=== PATIENT | male | born 1945 | race Caucasian/White ===

== ENCOUNTER 2021-08-03 17:07 | Inpatient (IN) ==
[2021-08-03] MEDS ORDERED: OLANZapine 10 MG VIAL IM SCH (17:15)
--- NOTE | 2021-08-03 17:19 | Emergency Department Note ---
Altered Mental Status HPI <Veronika Villegas PA-C - Last Filed: 08/03/21 19:47> General Chief Complaint: Altered Mental Status Stated Complaint: Altered loc Time Seen by Provider: 08/03/21 17:14 Mode of arrival: other Limitations: altered mental status History of Present Illness HPI Narrative: 76-year-old male returns from the OR after cystoscopy and placement of a King catheter with Dr. Braun. Briefly, he was sent over from [facility] ER as they were not able to place a King catheter for acute urinary retention. He presented to the [facility] ER this morning with altered mental status and recurrent falls with last normal yesterday morning. Work-up at [facility] includes a CBC, CMP, urinalysis, chest x-ray, head CT without contrast. Patient has a leukocytosis of 11,500 with a subtle left shift. Electrolytes and kidney function are normal. Chest x-ray is negative. Head CT without contrast is negative for acute intracranial process. Urinalysis is negative for leukocyte esterase, nitrates, blood, ketones, protein, WBCs and bacteria. Patient does have a necrotic left toe, and has been on several courses of antibiotics with most recent antibiotic cephalexin. He is being treated by his primary care for this and has an appointment with podiatry on Friday. Patient past medical history significant for BPH, T2DM, polymyalgia rheumatica, chronic opioid use. Daughter is at the bedside gives his history. She states that he has a history of urosepsis with "the exact same presentation." She states that once he was placed on antibiotics his cognition cleared. He does not drink alcohol. No known other substance use. No history of dementia or cognitive dysfunction. Related Data Previous Rx's Medication Instructions Recorded tramadol 50 mg tablet 100 mg PO Q6H #240 tab 04/23/21 terbinafine HCl 250 mg tablet 250 mg PO QDAY #30 tab 07/25/21 hydrocodone 10 mg-acetaminophen 1 tab PO Q6H PRN #120 tab 07/27/21 325 mg tablet cephalexin 500 mg capsule 500 mg PO TID 7 Days #21 cap 07/31/21 Allergies Allergy/AdvReac Type Severity Reaction Status Date / Time Amoxicillin AdvReac Intermediate unable to Verified 08/03/21 17:08 urinate Review of Systems <Veronika Villegas PA-C - Last Filed: 08/03/21 19:47> ROS ROS Narrative: Narrative: Limitations: ROS unobtainable due to patients medical condition PFS <Veronika Villegas PA-C - Last Filed: 08/03/21 19:47> Narrative Patient History Narrative: Narrative: Medical/Surgical/Family History All Active Problems (Updated 08/03/21 @ 19:35 by Veronika Villegas PA-C) Acute alteration in mental status (Acute) Acute urinary retention (Acute) Altered mental status, unspecified (Acute) Acute urinary retention (Acute) Cellulitis of toe (Acute) Onychomycosis (Acute) Cellulitis and abscess of foot (Acute) Medicare annual wellness visit, subsequent (Acute) Scoliosis (Chronic) DDD (degenerative disc disease), lumbar (Chronic) Polymyalgia rheumatica (Chronic) Screening for malignant neoplasm of prostate (Chronic) Anemia (Chronic) Elevated 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 (Chronic) 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) Encounter for preventative adult health care examination (Chronic) Refractory nausea and vomiting (Acute) UTI (urinary tract infection) (Acute) Macrocytic anemia (Acute) Pericardial effusion without cardiac tamponade (Acute) Vomiting alone (Acute) Kidney stone (Acute) Spinal stenosis (Chronic) Hostile behavior (Chronic) Fatigue (Chronic) Chronic pain (Chronic) Agitated depression (Chronic) Hypertension (Chronic) Headache (Chronic) Delirium (Chronic) 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) Diabetes (Chronic) Sepsis (Chronic) Hyperglycemia (Chronic) Altered mental status (Chronic) Keratoacanthoma (Chronic) Medical History (Updated 08/03/21 @ 19:35 by Veronika Villegas PA-C) Agitated depression Altered mental status secondary to infection and hyperglycemia Anemia Chronic pain DDD (degenerative disc disease), lumbar Delirium Diabetes Elevated PSA Encounter for preventative adult health care examination Fatigue Headache Hostile behavior Hyperglycemia 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 Sister No problems noted. Brother , Age 69 Cancer Other Diabetes HTN (hypertension) Social History Smoking Status: Former smoker Alcohol Intake Frequency: does not drink Substance Use: does not use Exam <Veronika Villegas PA-C - Last Filed: 08/03/21 19:47> Narrative Narrative: General: Confused, not following commands. Not answering questions. Combative. HEENT: PERRL, EOMI, normocephalic. Moist mucous membranes. Normal facies and normal dentition. Chest: Symmetric, no pain to palpation Respiratory: Lungs clear to auscultation bilaterally. No respiratory distress. Unlabored breathing. Heart: Regular rate and rhythm, no murmurs/clicks/rubs. Abdomen: Non-tender, Non distended Extremities: Warm and well perfused. No edema. DP 2+ bilaterally. No venous stasis. Left toe with necrotic ulceration at the tip of the distal phalanx. No associated erythema or swelling. No drainage. Neuro: Cranial nerves II-XII grossly normal. Moves all fours spontaneously. Skin: Warm dry, no rashes or lesions, no cyanosis. Psych: Normal mood and affect Heme/Lymph: No abnormal bruising General Limitations: altered mental status Course <Veronika Villegas PA-C - Last Filed: 08/03/21 19:47> Course Course Narrative: 76-year-old male presents with altered mental status and acute urinary retention requiring cystoscopy and placement of a King catheter by urology Reevaluation(s) Reevaluation #1: So far the patient's work-up has found no source for his altered level consciousness. CBC showed a slight elevation of his white blood count to 11,500 with a subtle left shift. CMP is unremarkable. Blood glucose was 222. Urinalysis is pending. Patient is requiring an additional 5 mg of IM Zyprexa for agitation. He is currently in four-point restraints with soft wrist and ankle splints to keep him from removing lines and tubes. I have attempted to send him to MRI for stroke rule out, but he is currently too combative and unable to cooperate for imaging. Patient will clearly need admission and further evaluation, and I have reached out to the hospitalist. Order ammonia level TSH, blood cultures, x-ray of the left great toe Vital Signs Vital signs: Vital Signs Temperature 37.2 C 08/03/21 17:08 Pulse Rate 90 08/03/21 17:08 Respiratory Rate 18 08/03/21 17:08 Blood Pressure 187/110 08/03/21 17:08 Pulse Oximetry (%) 100 08/03/21 17:08 Temperature 36.6 C 08/03/21 21:41 Pulse Rate 79 08/03/21 22:27 Respiratory Rate 20 08/03/21 22:27 Blood Pressure 186/78 08/03/21 22:27 Pulse Oximetry (%) 99 08/03/21 22:27 [facility] <Veronika Villegas PA-C - Last Filed: 08/03/21 19:47> [facility] Narrative Medical decision making narrative: Altered mental status Acute urinary retention Status post placement of a King catheter by cystoscopy Left toe cellulitis Unable to obtain further head imaging to evaluate for stroke given the patient's combativeness and inability to participate with MRI. He is currently in four- point soft restraints to protect lines and tubes. Urinalysis is unremarkable for infection. Ammonia level, TSH, blood cultures are pending. Patient's left great toe x-ray shows cellulitis but no evidence of osteomyelitis. I gave 1 g of IV ceftriaxone. Patient will need admission and further work-up for his altered mental status. I have spoken with Dr. Ramírez who has accepted the patient for admission. The patient has an appointment with , podiatry, on Friday for evaluation of his left toe. I have reached out to and left a message regarding consultation while the patient is admitted. Lab Data Labs: Lab Results 08/03/21 08/03/21 08/03/21 Range/Units 17:45 17:45 17:45 ESR 5 (0-20) mm/hr Hemoglobin A1c (4.0-6.0) % Hgb Estim Average Glucose mg/dL Ammonia 24 (16-60) umol/L C-Reactive Protein (0.03-0.80) mg/dL Procalcitonin (<0.10) ng/mL TSH 1.82 (0.27-5.01) uIU/mL 08/03/21 08/03/21 08/03/21 Range/Units 17:45 17:45 17:45 ESR (0-20) mm/hr Hemoglobin A1c 6.8 H (4.0-6.0) % Hgb Estim Average Glucose 148 mg/dL Ammonia (16-60) umol/L C-Reactive Protein < 0.30 (0.03-0.80) mg/dL Procalcitonin 0.02 (<0.10) ng/mL TSH (0.27-5.01) uIU/mL Discharge Plan Patient/Caregiver Discharge Instructions Pt seen by HANDLE ATTACHER/PA only: Yes Clinical Impression: Altered mental status, unspecified, Acute urinary retention, Cellulitis of toe Patient Disposition: Xfer As Inpt ([facility]) Discharge Date/Time: 08/03/21 21:07
--- NOTE | 2021-08-03 17:40 | XRay Report ---
HISTORY: Pain in the left first toe, evaluate for osteomyelitis FINDINGS: There is a very thin metallic linear foreign body in or just beneath the skin surface along the inferior medial border of the distal end of the great toe. There is no associated gas in the soft tissues. The soft tissues surrounding the distal phalanx are swollen. The bones are normally mineralized. There is no bone erosion or periosteal elevation. The interphalangeal and metatarsal phalangeal joints are normal, without evidence of arthritis. There is no fracture or subluxation. IMPRESSION: Soft tissue swelling suggesting cellulitis around the distal phalanx. No radiographic evidence of osteomyelitis Foreign body Interpreted and Authenticated by: Stanislaw Vee 08/03/21
[2021-08-03] MEDS ORDERED: cefTRIAXone 1 GM VIAL IV ONE (18:50)
[2021-08-03] MEDS ORDERED: HALOPERIDOL LACTATE 5 MG/ML VIAL IV ONE (20:17)
--- NOTE | 2021-08-03 20:17 | Internal Med History&Physical ---
HPI History of Present Illness Patient information: Note initiated : 08/03/21 at 7:57 pm Service Date, if different from initiated Date: [] Patient: Gianluca Burleson a 76 y/o M admitted on for Altered loc. Chief Complaint: [] History of present illness: Mr. Burleson is a 76 year old M Presented to [facility] with altered mental status severely confused falling speaking gibberish. He is combative towards EMS and given 300 mg of ketamine. In the ED is screaming at the nurses and I tried to place King catheter and were unable to do so so Dr. Braun was contacted here at [facility] patient was brought over to [facility] Doctor Aparna Attempted Place, King in the ED but was unable and thus taken to the OR to perform King catheter placement. At [facility] he was given Ativan times multiple doses as well as fentanyl in addition to the ketamine given by EMS. Over here [facility] he was given Zyprexa. Patient more calm than was prior but still quite agitated and constantly trying to move against the four-point restraints. He is afebrile has a very mild leukocytosis 11.4 has been on antibiotics for toe infection on the left great toe which looks like dry gangrene. Urinalysis is unimpressive although he has been on antbiotics. He had significant urinary retention. He has a history of urinary retention with infections is not on Flomax because he says it per family he urinates fine otherwise. And he is a diabetic but does not take diabetic medications. Patient only takes Mcfall and tramadol and family says on Mcfall 24 hours a day. Laboratory is unremarkable. CT was done over at [facility] where I am told I do not see the report but I was told it was negative. Had a chest x-ray that was negative. ED try to get an MRI but was unable because of his agitation. Family thinks that Friday morning he probably started having some urinary issues but the confusion started happening today and first noticed it after he fallen several times. He is supposed to see for his toe on Friday. He had a nearly identical presentation to [facility] back in 2017 after he had been on antibiotics started for submandibular abscess. He also was hyperglycemic at that time. He had extensive work-up including work-up for encephalitis and meningitis which was negative . His encephalopathy was felt to be secondary to infection/sepsis hyperglycemia and he had urinary retention at that time as well. He recovered fairly rapidly with treatment, antibiotics and control of his blood glucose and King catheter placement. Review of system: Unable to obtain given altered mental status. 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) Encounter for preventative adult health care examination (Chronic) Refractory nausea and vomiting (Acute) UTI (urinary tract infection) (Acute) Macrocytic anemia (Acute) Pericardial effusion without cardiac tamponade (Acute) Vomiting alone (Acute) Kidney stone (Acute) Spinal stenosis (Chronic) Hostile behavior (Chronic) Fatigue (Chronic) Chronic pain (Chronic) Agitated depression (Chronic) Hypertension (Chronic) Headache (Chronic) Delirium (Chronic) 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) Diabetes (Chronic) Sepsis (Chronic) Hyperglycemia (Chronic) Altered mental status (Chronic) Keratoacanthoma (Chronic) Medical History (Updated 08/03/21 @ 19:35 by Veronika Villegas PA-C) Agitated depression Altered mental status secondary to infection and hyperglycemia Anemia Chronic pain DDD (degenerative disc disease), lumbar Delirium Diabetes Elevated PSA Encounter for preventative adult health care examination Fatigue Headache Hostile behavior Hyperglycemia Hypertension 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 Sister No problems noted. Brother , Age 69 Cancer Other Diabetes HTN (hypertension) Social History marital status: alcohol intake frequency: does not drink substance use type: does not use MEDS/ALLERGIES Home Medications and Allergies Home Medications Medication Instructions Recorded Confirmed Type tramadol 50 mg tablet 100 mg PO Q6H #240 tab 04/23/21 08/03/21 Rx terbinafine HCl 250 mg tablet 250 mg PO QDAY #30 tab 07/25/21 08/03/21 Rx hydrocodone 10 mg-acetaminophen 1 tab PO Q6H PRN #120 tab 07/27/21 08/03/21 Rx 325 mg tablet cephalexin 500 mg capsule 500 mg PO TID 7 Days #21 cap 07/31/21 08/03/21 Rx Allergies Allergy/AdvReac Type Severity Reaction Status Date / Time Amoxicillin AdvReac Intermediate unable to Verified 08/03/21 17:08 urinate EXAM Constitutional Vitals: Temp Pulse Resp BP Pulse Ox 98.9 F 83 18 156/80 97 08/03/21 17:08 08/03/21 17:54 08/03/21 17:08 08/03/21 17:54 08/03/21 17:54 Exam: General: Agitated and restless Eyes/N/T: EOMI, PERRL, dryMM Head/Neck: neck supple, normocephalic atraumatic CV: RRR, No murmurs, normal s1/s2 Pulm: Clear b/l, no wheezing/rhonchi/rales Abd: soft, nontender, +BS x4 Ext: no clubbing/cyanosis/edema, tip of left great toe appears to have dry gangrene Neuro: Severely agitated in four-point restraints, moves all extremities, he did seem to calm when I talk to him and he made eye contact did follow commands as far as squeezing my hands and opening his mouth and his eyes. Skin: warm/dry DATA Data Completed and Pending Labs: Labs from last 24 hours 08/03/21 08/03/21 17:45 17:45 Ammonia 24 TSH 1.82 A/P Narrative A/P Narrative: A: *Metabolic Encephalopathy superimposed most certainly on some degree of neurocognitive dysfunction: 2/2 multifactorial including toe infection, ?urinary, urinary retention from chronic SAVAGE. -was informed CT brain negative at [facility] *SAVAGE from BPH, acute on chronic: King catheter placed by Dr. Braun *Suspected infectious source: either Left toe or (although UA unremarkable, but has been on oral Abx) or both *Most likely underlying Neurocognitive disorder (h/o delerium): -severely agitated with aggressive behaviors *h/o DM: but does not take medication *Chronic back/neck pain: On Mcfall and tramadol daily P: -Broad spectrum Abx (zosyn) until BC cx's return & toe evaluated by Alex/Jacob -Maintain King catheter -control of agitation, may need precedex drip for the night, the way he is thrashing with 4 point restraints worries my about injury and rhabdo -MRI Brain/Foot when able -Dr. James/Alex consulted -Flomax -ST for cognitive eval when able -Check A1c - -pt/ot when able -ppx: lovenox Time Spent With Patient Time: Total time spent is greater than 50% in coordination of care (as documented) at patient's floor/unit and/or counseling patient:
[2021-08-03] MEDS ORDERED: diphenhydrAMINE 50 MG/ML VIAL IV ONE (20:23)
[2021-08-03 20:37] LABS: C-Reactive Protein < 0.30 mg/dL (0.03-0.80)
[2021-08-03] MEDS ORDERED: ONDANSETRON 4 MG/2 ML VIAL IV PRN (21:14)
[2021-08-03] MEDS ORDERED: 0.9 % SODIUM CHLORIDE 1,000 ML IV SCH (21:14)
[2021-08-03] MEDS ORDERED: MAGNESIUM SULFATE 2 GM/50 ML BAG IV PRN (21:14)
[2021-08-03] MEDS ORDERED: ACETAMINOPHEN 325 MG TABLET PO PRN (21:14)
[2021-08-03] MEDS ORDERED: POLYETHYLENE GLYCOL 3350 17 GM PACKET PO PRN (21:14)
[2021-08-03] MEDS ORDERED: DEXTROSE 50% 50 ML VIAL IV PRN (21:14)
[2021-08-03] MEDS ORDERED: POTASSIUM CHLORIDE 20 MEQ TABLET PO PRN ×2 (21:14)
[2021-08-03] MEDS ORDERED: SENNOSIDES 1 TABLET PO PRN (21:14)
[2021-08-03] MEDS ORDERED: morphine 4 MG/ML VIAL IV PRN ×2 (21:14→22:17)
[2021-08-03] MEDS ORDERED: POTASSIUM CHLORIDE 40 MEQ in DEXTROSE 5% IN WATER 500 ML IV PRN (21:14)
[2021-08-03] MEDS ORDERED: DEXTROSE 31 GM ORAL.SUSP PO PRN (21:14)
[2021-08-03] MEDS ORDERED: IPRATROPIUM/ALBUTEROL 3 ML AMPUL.NEB NEB PRN (21:14)
[2021-08-03] MEDS ORDERED: METOCLOPRAMIDE 10 MG/2 ML VIAL IV PRN (21:14)
[2021-08-03] MEDS ORDERED: diphenhydrAMINE 50 MG/ML VIAL ONE (21:28)
[2021-08-03] MEDS ORDERED: HALOPERIDOL LACTATE 5 MG/ML VIAL ONE (21:28)
[2021-08-03] MEDS: DEXMEDETOMIDINE 400 MCG in PREMIX 1 BAG IV SCH (21:39)
[2021-08-03] MEDS: 0.9 % SODIUM CHLORIDE 10 ML SYRINGE IV SCH (21:57)
[2021-08-03] MEDS: TAMSULOSIN 0.4 MG CAPSULE PO SCH (21:57)
[2021-08-03] MEDS: INSULIN LISPRO 1 UNIT/0.01 ML UNIT SQ SCH (22:04)
[2021-08-03] MEDS: 0.9 % SODIUM CHLORIDE 250 ML IV SCH (22:10)
[2021-08-03] MEDS: PIPERACILLIN SODIUM/TAZOBACTAM 3.375 GM in DEXTROSE 5% IN WATER 50 ML IV SCH (23:20)
[2021-08-03 23:25] LABS: Hemoglobin A1C 6.8 % Hgb (4.0-6.0)
[2021-08-04] MEDS ORDERED: morphine 4 MG/ML VIAL ONE (01:05)
[2021-08-04] MEDS ORDERED: LORazepam 2 MG/ML VIAL IV PRN (01:25)
[2021-08-04] MEDS ORDERED: diphenhydrAMINE 50 MG/ML VIAL IV ONE (01:28)
[2021-08-04] MEDS: LORazepam 2 MG/ML VIAL IV PRN ×5 (01:34→18:58)
[2021-08-04] MEDS ORDERED: LORazepam 2 MG/ML VIAL ONE ×2 (01:39→04:37)
[2021-08-04] MEDS ORDERED: HALOPERIDOL LACTATE 5 MG/ML VIAL IV PRN (01:46)
[2021-08-04] MEDS: PIPERACILLIN SODIUM/TAZOBACTAM 3.375 GM in DEXTROSE 5% IN WATER 50 ML IV SCH ×5 (03:01→23:54)
[2021-08-04] MEDS: 0.9 % SODIUM CHLORIDE 10 ML SYRINGE IV SCH ×4 (03:46→21:43)
[2021-08-04] MEDS ORDERED: HALOPERIDOL LACTATE 5 MG/ML VIAL ONE (03:52)
[2021-08-04 06:55] LABS: Hematocrit 45.9 % (40.1-51.0); Hemoglobin 16.3 g/dL (13.7-17.5); Mean Cell Volume 100.4 fL (80.0-100.0); Mean Corpuscular HGB Conc 35.5 g/dL (31.0-36.0); Mean Platelet Volume 12.9 fL (7.4-10.4); Platelet Count 163 K/mcL (140-440); RBC 4.57 M/mcL (4.63-6.08); WBC 17.3 K/mcL (4.5-11.0)
[2021-08-04 07:29] LABS: ALT/SGPT 25 U/L (<40); AST/SGOT 85 U/L (<40); Albumin 4.6 gm/dL (3.2-5.2); Albumin/Globulin Ratio 1.8 (1.0-2.3); Alkaline Phosphatase 48 U/L (39-117); Bilirubin,Direct 0.3 mg/dL (<0.3); Bilirubin,Total 0.9 mg/dL (0.1-1.0); Blood Urea Nitrogen 13 mg/dL (8-23); Calcium 9.7 mg/dL (8.6-10.4); Carbon Dioxide 26 mmol/L (22-30); Chloride 101 mmol/L (96-108); Globulin 2.5 gm/dL (2.2-3.7); Glomerular Filtration Rate 96; Glucose 134 mg/dL (70-105); Lactate Dehydrogenase 299 U/L (135-225); Phosphorous 2.5 mg/dL (2.5-4.5); Triglycerides 56 mg/dL (<150); Uric Acid 2.2 mg/dL (2.5-8.0)
[2021-08-04] MEDS: morphine 4 MG/ML VIAL IV PRN ×3 (08:26→20:13)
--- NOTE | 2021-08-04 08:28 | Internal Med Progress Note ---
SUBJECTIVE Subjective Patient information: Note initiated : 08/04/21 at 8:21 am Service Date, if different from initiated Date: [] Patient: Gianluca Burleson a 76 y/o M admitted on 08/03/21 for Altered loc. Chief Complaint: [] Interval history: History of present illness: Mr. Burleson is a 76 year old M Presented to [place] with altered mental status severely confused falling speaking gibberish. He is combative towards EMS and given 300 mg of ketamine. In the ED is screaming at the nurses and I tried to place King catheter and were unable to do so so Dr. Braun was contacted here at [facility] patient was brought over to [facility] Doctor Aparna [facility]ed Place, King in the ED but was unable and thus taken to the OR to perform King catheter placement. At [place] he was given Ativan times multiple doses as well as fentanyl in addition to the ketamine given by EMS. Over here [facility] he was given Zyprexa. Patient more calm than was prior but still quite agitated and constantly trying to move against the four-point restraints. He is afebrile has a very mild leukocytosis 11.4 has been on antibiotics for toe infection on the left great toe which looks like dry gangrene. Urinalysis is unimpressive although he has been on antbiotics. He had significant urinary retention. He has a history of urinary retention with infections is not on Flomax because he says it per family he urinates fine otherwise. And he is a diabetic but does not take diabetic medications. Patient only takes [place] and tramadol and family says on [place] 24 hours a day. Laboratory is unremarkable. CT was done over at [facility] where I am told I do not see the report but I was told it was negative. Had a chest x-ray that was negative. ED try to get an MRI but was unable because of his agitation. Family thinks that Friday morning he probably started having some urinary issues but the confusion started happening today and first noticed it after he fallen several times. He is supposed to see for his toe on Friday. He had a nearly identical presentation to [place] back in 2017 after he had been on antibiotics started for submandibular abscess. He also was hyperglycemic at that time. He had extensive work-up including work-up for encephalitis and meningitis which was negative . His encephalopathy was felt to be secondary to infection/sepsis hyperglycemia and he had urinary retention at that time as well. He recovered fairly rapidly with treatment, antibiotics and control of his blood glucose and King catheter placement. 08/04 Patient was treated with the Haldol Ativan and Precedex was initially placed but did not seem to help so stopped and mainly controlled by the Haldol and Ativan. Patient appears comfortable little restless at times. Per the nurse the times that he becomes agitated is really only when nursing does cares. We will attempt to wake him up after lunch to see how he responds and was mentat ion is. Review of systems: Unable to obtain given sedation and altered mental status Constitutional Vitals: Vital Signs Temp Pulse Resp BP Pulse Ox 97.8 F 84 33 H 108/95 96 08/04/21 08:08 08/04/21 05:01 08/04/21 08:08 08/04/21 08:08 08/04/21 05:01 Period Temp Pulse Resp BP Sys/Bagley Pulse Ox Last 24 Hr 97.8 F-98.9 F 43-99 13-33 101-207/52-162 84-100 Intake and Output 08/03/21 08/04/21 08/04/21 21:59 05:59 13:59 Intake Total 290 50 Output Total 850 Balance -560 50 Weight 57.379 kg Intake & Output: Intake & Output 08/03/21 08/04/21 08/04/21 21:59 05:59 13:59 Intake Total 290 50 Output Total 850 Balance -560 50 Weight 57.379 kg Intake: IV 290 50 Sodium Chloride 0.9% 1,000 ml @ 64 75 mls/hr IV .[id number] [facility] Rx#: [id number] Sodium Chloride 0.9% 250 ml @ 137 20 mls/hr IV .[id number] [facility] Rx#: [id number] Precedex 400 Mcg/100 ml 39 Dextrose 400 Mcg In Premix 1 Bag @ 0.2 MCG/KG/HR 3.402 mls/ hr IV .Q24H [facility] Rx#:[id number] Zosyn 3.375 gm In Dextrose 5% 50 50 in Water 50 ml @ 100 mls/hr IV Q6H [facility] Rx#:[id number] Output: Urine Catheter Amount 850 Other: Urine Appearance Clear Uretheral (King) Clear Urine Color Pale Blood Tinged Uretheral (King) Pale Blood Tinged Exam: General: more comfortable today less agitated at rest , Eyes/N/T: PERRL Head/Neck: neck supple, CV: RRR, No murmurs, Pulm: Clear b/l, no wheezing/rhonchi/rales Abd: soft, nontender, +BS x4 Ext: no clubbing/cyanosis/edema, tip of left great toe appears to have dry gangrene Neuro: Appears more comfortable less agitated. Responds to voice and partially opens eyes to command even though on sedation skin: warm/dry OBJ DATA Labs CBC & Chem 7: 08/04/21 05:24 08/04/21 05:24 Labs: Abnormal Lab Results 08/04/21 08/04/21 08/03/21 05:24 05:24 17:45 WBC 17.3 H RBC 4.57 L MCV 100.4 H MCH 35.7 H MPV 12.9 H Creatinine 0.6 L Glucose 134 H Hemoglobin A1c 6.8 H Uric Acid 2.2 L Direct Bilirubin 0.3 H AST 85 H Lactate Dehydrogenase 299 H Meds: Medications Acetaminophen (Acetaminophen 325 Mg Tablet) 650 mg PO Q6HP PRN; Protocol PRN Reason: Per Pain Protocol/Fever > 101 Hydrocodone Bitart/Acetaminophen (Hydrocodone/Apap 10/325mg Tablet) 1 tab PO Q6H PRN; Protocol PRN Reason: pain Albuterol/Ipratropium (Ipratropium/Albuterol 3 Ml Ampul.Neb) 3 ml NEB Q4HP PRN PRN Reason: Shortness Of Breath Dextrose (Dextrose 50% 50 Ml Vial) 0 ml IV UD PRN PRN Reason: Hypoglycemia Diagnostic Test (Pha) (Accu-Chek 1 Each Strip) 1 each FS ACHS [facility] Last Admin: 08/04/21 02:56 Dose: 1 each Documented by: Enoxaparin Sodium (Enoxaparin 40 Mg/0.4 Ml Syringe) 40 mg SQ DAILY [facility] Glucose (Dextrose 31 Gm Oral.Susp) 15 gm PO PRN PRN PRN Reason: Hypoglycemia Haloperidol Lactate (Haloperidol Lactate 5 Mg/Ml Vial) 5 mg IV Q4HP PRN PRN Reason: ANXIETY/SEDATION Last Admin: 08/04/21 03:46 Dose: 5 mg Documented by: Potassium Chloride 40 meq/ (Dextrose) 520 mls @ 130 mls/hr IV UD PRN PRN Reason: Potassium < 3 Magnesium Sulfate (Magnesium Sulfate) 2 gm in 50 mls @ 50 mls/hr IV UD PRN PRN Reason: Magnesium </= 1.6 Sodium Chloride (Sodium Chloride 0.9%) 1,000 mls @ 75 mls/hr IV .[id number] [facility] Last Infusion: 08/04/21 02:45 Dose: 75 mls/hr Documented by: Piperacillin Sod/Tazobactam (Sod 3.375 gm/ Dextrose) 50 mls @ 100 mls/hr IV Q6H [facility]; Protocol Last Infusion: 08/04/21 06:00 Dose: Infused Documented by: Dexmedetomidine HCl 400 mcg/ (Premix) 100 mls @ 3.402 mls/hr IV .Q24H [facility]; Protocol Last Titration: 08/04/21 01:50 Dose: 0 mcg/kg/hr, 0 mls/hr Documented by: Sodium Chloride (Sodium Chloride 0.9%) 250 mls @ 20 mls/hr IV .[id number] [facility] Last Infusion: 08/04/21 05:01 Dose: 0 mls/hr Documented by: Insulin Human Lispro (Insulin Lispro 1 Unit/0.01 Ml Unit) 0 unit SQ ACHS [facility]; Protocol Last Admin: 08/03/21 22:04 Dose: 8 units Documented by: Labetalol HCl (Labetalol 5 Mg/Ml Ml) 0 mg IV Q2HP PRN PRN Reason: Hypertension Lorazepam (Lorazepam 2 Mg/Ml Vial) 1 mg IV Q1HP PRN PRN Reason: ANXIETY/SEDATION Last Admin: 08/04/21 04:33 Dose: 0.5 mg Documented by: Metoclopramide HCl (Metoclopramide 10 Mg/2 Ml Vial) 10 mg IV Q6HP PRN PRN Reason: Nausea And Vomiting Morphine Sulfate (Morphine 4 Mg/Ml Vial) 0 mg IV Q3HP PRN PRN Reason: Pain Ondansetron HCl (Ondansetron 4 Mg/2 Ml Vial) 4 mg IV Q4HP PRN PRN Reason: Nausea And Vomiting Pantoprazole Sodium (Pantoprazole 40 Mg Vial) 40 mg IV [facility] Polyethylene Glycol (Polyethylene Glycol 3350 17 Gm Packet) 17 gm PO DAILYP PRN PRN Reason: Constipation Potassium Chloride (Potassium Chloride 20 Meq Tablet) 40 meq PO UD PRN PRN Reason: Potssium is 3-3.5 Potassium Chloride (Potassium Chloride 20 Meq Tablet) 40 meq PO UD PRN PRN Reason: Potassium < 3 Senna (Sennosides 1 Tablet) 2 tab PO DAILYP PRN PRN Reason: Constipation Sodium Chloride (0.9 % Sodium Chloride 10 Ml Syringe) 10 ml IV Q8 [facility] Last Admin: 08/04/21 05:00 Dose: 10 ml Documented by: Tamsulosin HCl (Tamsulosin 0.4 Mg Capsule) 0.4 mg PO HS [facility] Last Admin: 08/03/21 21:57 Dose: Not Given Documented by: A/P Narrative A/P Narrative: A: *Metabolic Encephalopathy superimposed most certainly on some degree of neurocognitive dysfunction: 2/2 multifactorial including toe infection, ?urinary, urinary retention from chronic SAVAGE. -was informed CT brain negative at [facility] *SAVAGE from BPH, acute on chronic: King catheter placed by Dr. Braun *Suspected infectious source: either Left toe or (although UA unremarkable, but has been on oral Abx) or both *Left great toe dry gangrene: *Most likely underlying Neurocognitive disorder (h/o delerium): -severely agitated with aggressive behaviors *h/o DM: but does not take medication -A1c 6.8 *Chronic back/neck pain: On [place] and tramadol daily *Macrocytosis: check b12/folate P: -Broad spectrum Abx (zosyn) until BC cx's return & toe evaluated by Alex/Jacob -Maintain King catheter -control of agitation, precedex drip if needed, Ativan/haldol -MRI Brain/Foot when able -Dr. James/Alex consulted -Flomax -ST for cognitive eval when able - -pt/ot when able -ppx: lovenox Time Spent With Patient Time: Total time spent is greater than 50% in coordination of care (as documented) at patient's floor/unit and/or counseling patient: QUALITY VTE Deep Vein Thrombosis/Pulmonary Embolism Present on Admission: No
[2021-08-04] MEDS: ENOXAPARIN 40 MG/0.4 ML SYRINGE SQ SCH (08:57)
[2021-08-04] MEDS: POTASSIUM CHLORIDE 20 MEQ in 0.45 % SODIUM CHLORIDE 1,000 ML IV SCH ×2 (08:58→23:54)
[2021-08-04] MEDS: PANTOPRAZOLE 40 MG VIAL IV SCH (08:58)
[2021-08-04] MEDS: 0.9 % SODIUM CHLORIDE 250 ML IV SCH ×2 (08:59→21:44)
[2021-08-04] MEDS: INSULIN LISPRO 1 UNIT/0.01 ML UNIT SQ SCH ×4 (09:41→20:44)
[2021-08-04 10:02] LABS: Lymphocytes % 3 % (15-49); Macrocytosis 1+ (None Seen); Monocytes % (Manual) 11 % (1-12); Platelet Estimate NORMAL (Normal); RBC Morphology ABNORMAL (Normal); Segmented Neutrophils % 86 % (38-78)
[2021-08-04] MEDS: METOPROLOL TARTRATE 5 MG/5 ML VIAL IV PRN ×3 (13:05→13:26)
[2021-08-04] MEDS ORDERED: METOPROLOL TARTRATE 5 MG/5 ML VIAL IV ONE ×2 (13:12→13:19)
[2021-08-04] MEDS ORDERED: DEXTROSE 50% 50 ML SYRINGE IV PRN (13:38)
[2021-08-04] MEDS: LABETALOL 5 MG/ML ML IV PRN ×2 (17:18→19:40)
[2021-08-04] MEDS: TAMSULOSIN 0.4 MG CAPSULE PO SCH (20:38)
[2021-08-04] MEDS: DEXMEDETOMIDINE 400 MCG in PREMIX 1 BAG IV SCH (21:43)
[2021-08-05] MEDS: LORazepam 2 MG/ML VIAL IV PRN (00:27)
[2021-08-05] MEDS: morphine 4 MG/ML VIAL IV PRN ×3 (00:28→13:45)
[2021-08-05] MEDS: PIPERACILLIN SODIUM/TAZOBACTAM 3.375 GM in DEXTROSE 5% IN WATER 50 ML IV SCH ×4 (05:55→23:37)
[2021-08-05] MEDS: 0.9 % SODIUM CHLORIDE 10 ML SYRINGE IV SCH ×3 (05:56→23:27)
[2021-08-05 06:20] LABS: Basophils # (Auto) 0.01 K/mcL (0.00-0.30); Basophils % (Auto) 0 % (0.0-2.0); Eosinophils # (Auto) 0 K/mcL (0.00-0.70); Eosinophils % (Auto) 0 % (0.0-7.0); Hematocrit 45.7 % (40.1-51.0); Hemoglobin 16.2 g/dL (13.7-17.5); Lymphocytes # (Auto) 1.88 K/mcL (1.50-4.80); Lymphocytes % (Auto) 9.2 % (15.5-49.0); Mean Corpuscular HGB Conc 35.4 g/dL (31.0-36.0); Mean Platelet Volume 12.9 fL (7.4-10.4); Monocytes # (Auto) 1.95 K/mcL (0.10-0.90); Monocytes % (Auto) 9.5 % (1.0-12.0); Neutrophils % (Auto) 81.3 % (38.0-78.0); Platelet Count 164 K/mcL (140-440); RBC 4.48 M/mcL (4.63-6.08); Red Cell Distribution Width 12.1 % (11.5-14.5); WBC 20.5 K/mcL (4.5-11.0)
[2021-08-05 06:40] LABS: Blood Urea Nitrogen 30 mg/dL (8-23); Calcium 9.6 mg/dL (8.6-10.4); Carbon Dioxide 25 mmol/L (22-30); Chloride 101 mmol/L (96-108); Glomerular Filtration Rate 90; Glucose 254 mg/dL (70-105)
[2021-08-05] MEDS: ENOXAPARIN 40 MG/0.4 ML SYRINGE SQ SCH (07:46)
[2021-08-05] MEDS: INSULIN LISPRO 1 UNIT/0.01 ML UNIT SQ SCH ×5 (07:46→23:53)
[2021-08-05] MEDS: PANTOPRAZOLE 40 MG VIAL IV SCH (07:47)
--- NOTE | 2021-08-05 08:03 | Internal Med Progress Note ---
SUBJECTIVE Subjective Patient information: Note initiated : 08/05/21 at 7:58 am Service Date, if different from initiated Date: [] Patient: Gianluca Burleson a 76 y/o M admitted on 08/03/21 for Altered loc. Chief Complaint: [] Interval history: History of present illness: Mr. Burleson is a 76 year old M Presented to [place] with altered mental status severely confused falling speaking gibberish. He is combative towards EMS and given 300 mg of ketamine. In the ED is screaming at the nurses and I tried to place King catheter and were unable to do so so Dr. Braun was contacted here at [facility] patient was brought over to [facility] Doctor Aparna Attempted Place, King in the ED but was unable and thus taken to the OR to perform King catheter placement. At [place] he was given Ativan times multiple doses as well as fentanyl in addition to the ketamine given by EMS. Over here [facility] he was given Zyprexa. Patient more calm than was prior but still quite agitated and constantly trying to move against the four-point restraints. He is afebrile has a very mild leukocytosis 11.4 has been on antibiotics for toe infection on the left great toe which looks like dry gangrene. Urinalysis is unimpressive although he has been on antbiotics. He had significant urinary retention. He has a history of urinary retention with infections is not on Flomax because he says it per family he urinates fine otherwise. And he is a diabetic but does not take diabetic medications. Patient only takes L[place] and tramadol and family says on L[place] 24 hours a day. Laboratory is unremarkable. CT was done over at [facility] where I am told I do not see the report but I was told it was negative. Had a chest x-ray that was negative. ED try to get an MRI but was unable because of his agitation. Family thinks that Friday morning he probably started having some urinary issues but the confusion started happening today and first noticed it after he fallen several times. He is supposed to see for his toe on Friday. He had a nearly identical presentation to [place] back in 2017 after he had been on antibiotics started for submandibular abscess. He also was hyperglycemic at that time. He had extensive work-up including work-up for encephalitis and meningitis which was negative . His encephalopathy was felt to be secondary to infection/sepsis hyperglycemia and he had urinary retention at that time as well. He recovered fairly rapidly with treatment, antibiotics and control of his blood glucose and King catheter placement. 08/04 Patient was treated with the Haldol Ativan and Precedex was initially placed but did not seem to help so stopped and mainly controlled by the Haldol and Ativan. Patient appears comfortable little restless at times. Per the nurse the times that he becomes agitated is really only when nursing does cares. We will attempt to wake him up after lunch to see how he responds and was mentat ion is. 08/05 Mentation much improved appears to be close to baseline. Family present. Will advance diet and likely transfer out to [facility] if he continues to maintain good mentation through the rest of the morning. No complaints. Discussed with who will see the patient for the toe infection. Blood cultures negative so far Review of Systems: denies headache/fever/chills/nausea/vomiting/chest or abdominal pain/cough/dyspnea. Otherwise see above. Constitutional Vitals: Vital Signs Temp Pulse Resp BP Pulse Ox 99.0 F 84 24 H 148/99 93 08/05/21 04:00 08/04/21 05:01 08/05/21 06:18 08/05/21 06:00 08/05/21 06:18 Period Temp Pulse Resp BP Sys/Bagley Pulse Ox Last 24 Hr 97.8 F-100.6 F 15-42 108-199/52-122 83-99 Intake and Output 08/04/21 08/05/21 08/05/21 21:59 05:59 13:59 Intake Total 50 1540 50 Output Total 450 650 Balance -400 890 50 Weight 55.61 kg Intake & Output: Intake & Output 08/04/21 08/05/21 08/05/21 21:59 05:59 13:59 Intake Total 50 1540 50 Output Total 450 650 Balance -400 890 50 Weight 55.61 kg Intake: IV 50 1060 50 Zosyn 3.375 gm In Dextrose 5% 50 50 50 in Water 50 ml @ 100 mls/hr IV Q6H [facility] Rx#:[id number] Potassium Chloride 20 Meq In 1010 Sodium Chloride 0.45% 1,000 ml @ 70 mls/hr IV .[id number] [facility] Rx# :[id number] Oral 480 Output: Urine Catheter Amount 450 650 Other: Urine Appearance Cloudy Clear Uretheral (King) Clear Urine Color Dark Martine Dark Yellow Uretheral (King) Dark Yellow Urine Odor Normal Stool Size Copious Stool Color Brown Yellow Stool Consistency Soft Formed Exam: General: more comfortable today less agitated at rest , Eyes/N/T: PERRL Head/Neck: neck supple, CV: RRR, No murmurs, Pulm: Clear b/l, no wheezing/rhonchi/rales Abd: soft, nontender, +BS x4 Ext: no clubbing/cyanosis/edema, tip of left great toe appears to have dry gangrene Neuro: Appears more comfortable less agitated. Responds to voice and partially opens eyes to command even though on sedation skin: warm/dry OBJ DATA Labs CBC & Chem 7: 08/05/21 05:42 08/05/21 05:42 Labs: Abnormal Lab Results 08/05/21 08/05/21 08/04/21 05:42 05:42 08:40 WBC 20.5 H RBC 4.48 L MCV 102.0 H MCH 36.2 H MPV 12.9 H Neut % (Auto) 81.3 H Lymph % (Auto) 9.2 L Blanco # (Auto) 1.95 H Seg Neutrophils % Lymphocytes % Absolute Neutrophils 16.70 H RBC Morphology Macrocytosis Anion Gap 17.0 H BUN 30 H Creatinine Glucose 254 H Hemoglobin A1c Uric Acid Direct Bilirubin AST Lactate Dehydrogenase Folate > 20.0 H 08/04/21 08/04/21 08/03/21 05:24 05:24 17:45 WBC 17.3 H RBC 4.57 L MCV 100.4 H MCH 35.7 H MPV 12.9 H Neut % (Auto) Lymph % (Auto) Blanco # (Auto) Seg Neutrophils % 86 H Lymphocytes % 3 L Absolute Neutrophils RBC Morphology Abnormal A Macrocytosis 1+ A Anion Gap BUN Creatinine 0.6 L Glucose 134 H Hemoglobin A1c 6.8 H Uric Acid 2.2 L Direct Bilirubin 0.3 H AST 85 H Lactate Dehydrogenase 299 H Folate Meds: Medications Acetaminophen (Acetaminophen 325 Mg Tablet) 650 mg PO Q6HP PRN; Protocol PRN Reason: Per Pain Protocol/Fever > 101 Hydrocodone Bitart/Acetaminophen (Hydrocodone/Apap 10/325mg Tablet) 1 tab PO Q6H PRN; Protocol PRN Reason: pain Albuterol/Ipratropium (Ipratropium/Albuterol 3 Ml Ampul.Neb) 3 ml NEB Q4HP PRN PRN Reason: Shortness Of Breath Dextrose (Dextrose 50% 50 Ml Syringe) 50 ml IV UD PRN PRN Reason: Hypoglycemia Last Admin: 08/04/21 13:41 Dose: 25 ml Documented by: Diagnostic Test (Pha) (Accu-Chek 1 Each Strip) 1 each FS ACHS [facility] Last Admin: 08/05/21 07:43 Dose: 1 each Documented by: Enoxaparin Sodium (Enoxaparin 40 Mg/0.4 Ml Syringe) 40 mg SQ DAILY [facility] Last Admin: 08/05/21 07:46 Dose: 40 mg Documented by: Glucose (Dextrose 31 Gm Oral.Susp) 15 gm PO PRN PRN PRN Reason: Hypoglycemia Haloperidol Lactate (Haloperidol Lactate 5 Mg/Ml Vial) 5 mg IV Q4HP PRN PRN Reason: ANXIETY/SEDATION Last Admin: 08/04/21 03:46 Dose: 5 mg Documented by: Potassium Chloride 40 meq/ (Dextrose) 520 mls @ 130 mls/hr IV UD PRN PRN Reason: Potassium < 3 Magnesium Sulfate (Magnesium Sulfate) 2 gm in 50 mls @ 50 mls/hr IV UD PRN PRN Reason: Magnesium </= 1.6 Piperacillin Sod/Tazobactam (Sod 3.375 gm/ Dextrose) 50 mls @ 100 mls/hr IV Q6H [facility]; Protocol Last Infusion: 08/05/21 06:30 Dose: Infused Documented by: Dexmedetomidine HCl 400 mcg/ (Premix) 100 mls @ 3.402 mls/hr IV .Q24H [facility]; Protocol Last Admin: 08/04/21 21:43 Dose: Not Given Documented by: Sodium Chloride (Sodium Chloride 0.9%) 250 mls @ 20 mls/hr IV .[id number] [facility] Last Admin: 08/04/21 21:44 Dose: Not Given Documented by: Potassium Chloride 20 meq/ (Sodium Chloride) 1,010 mls @ 70 mls/hr IV .[id number] [facility] Last Admin: 08/04/21 23:54 Dose: 70 mls/hr Documented by: Insulin Human Lispro (Insulin Lispro 1 Unit/0.01 Ml Unit) 0 unit SQ [facility]; Protocol Last Admin: 08/05/21 07:46 Dose: 10 units Documented by: Labetalol HCl (Labetalol 5 Mg/Ml Ml) 0 mg IV Q2HP PRN PRN Reason: Hypertension Last Admin: 08/04/21 19:40 Dose: 10 mg Documented by: Lorazepam (Lorazepam 2 Mg/Ml Vial) 1 mg IV Q1HP PRN PRN Reason: ANXIETY/SEDATION Last Admin: 08/05/21 00:27 Dose: 1 mg Documented by: Metoclopramide HCl (Metoclopramide 10 Mg/2 Ml Vial) 10 mg IV Q6HP PRN PRN Reason: Nausea And Vomiting Metoprolol Tartrate (Metoprolol Tartrate 5 Mg/5 Ml Vial) 5 mg IV Q2MIN PRN PRN Reason: Tachyarrhythmias Last Admin: 08/04/21 13:26 Dose: 5 mg Documented by: Morphine Sulfate (Morphine 4 Mg/Ml Vial) 0 mg IV Q3HP PRN PRN Reason: Pain Last Admin: 08/05/21 04:15 Dose: 4 mg Documented by: Ondansetron HCl (Ondansetron 4 Mg/2 Ml Vial) 4 mg IV Q4HP PRN PRN Reason: Nausea And Vomiting Pantoprazole Sodium (Pantoprazole 40 Mg Vial) [facility] Last Admin: 08/05/21 07:47 Dose: 40 mg Documented by: Polyethylene Glycol (Polyethylene Glycol 3350 17 Gm Packet) 17 gm PO DAILYP PRN PRN Reason: Constipation Potassium Chloride (Potassium Chloride 20 Meq Tablet) 40 meq PO UD PRN PRN Reason: Potssium is 3-3.5 Potassium Chloride (Potassium Chloride 20 Meq Tablet) 40 meq PO UD PRN PRN Reason: Potassium < 3 Senna (Sennosides 1 Tablet) 2 tab PO DAILYP PRN PRN Reason: Constipation Sodium Chloride (0.9 % Sodium Chloride 10 Ml Syringe) 10 ml IV Q8 [facility] Last Admin: 08/05/21 05:56 Dose: 10 ml Documented by: Tamsulosin HCl (Tamsulosin 0.4 Mg Capsule) 0.4 mg PO HS [facility] Last Admin: 08/04/21 20:38 Dose: Not Given Documented by: A/P Narrative A/P Narrative: A: *Metabolic Encephalopathy superimposed most certainly on some degree of neurocognitive dysfunction: 2/2 multifactorial including toe infection, ?urinary, urinary retention from chronic SAVAGE. -was informed CT brain [facility] at [facility] -[facility] *SAVAGE from BPH, acute on chronic: King catheter placed by Dr. Braun *Suspected infectious source: either Left toe or (although UA unremarkable, but has been on oral Abx) or both *Left great toe dry gangrene: *Most likely underlying Neurocognitive disorder (h/o delerium): -severely agitated with aggressive behaviors *h/o DM: but does not take medication -A1c 6.8 *Chronic back/neck pain: On [place] and tramadol daily *Macrocytosis: check b12/folate *leukocytosis: likely reactive P: -Broad spectrum Abx (zosyn) until BC cx's return & toe evaluated by Lindsey -Maintain King catheter -IVF today -MRI Brain/Foot when able -Dr. James/Alex consulted -Flomax -ST for cognitive eval -pt/ot -ppx: lovenox Time Spent With Patient Time: Total time spent is greater than 50% in coordination of care (as documented) at patient's floor/unit and/or counseling patient: QUALITY VTE Deep Vein Thrombosis/Pulmonary Embolism Present on Admission: No
[2021-08-05] MEDS ORDERED: 0.9 % SODIUM CHLORIDE 1,000 ML IV SCH (08:15)
--- NOTE | 2021-08-05 12:25 | Internal Med Progress Note ---
SUBJECTIVE Subjective Patient information: Note initiated : 08/05/21 at 12:22 pm Service Date, if different from initiated Date: [] Patient: Gianluca Burleson a 76 y/o M admitted on 08/03/21 for Altered loc. Chief Complaint: [] Interval history: History of present illness: Mr. Burleson is a 76 year old M Presented to [facility] with altered mental status severely confused falling speaking gibberish. He is combative towards EMS and given 300 mg of ketamine. In the ED is screaming at the nurses and I tried to place King catheter and were unable to do so so Dr. Braun was contacted here at [facility] patient was brought over to [facility] Doctor Aparna Attempted Place, King in the ED but was unable and thus taken to the OR to perform King catheter placement. At [facility] he was given Ativan times multiple doses as well as fentanyl in addition to the ketamine given by EMS. Over here [facility] he was given Zyprexa. Patient more calm than was prior but still quite agitated and constantly trying to move against the four-point restraints. He is afebrile has a very mild leukocytosis 11.4 has been on antibiotics for toe infection on the left great toe which looks like dry gangrene. Urinalysis is unimpressive although he has been on antbiotics. He had significant urinary retention. He has a history of urinary retention with infections is not on Flomax because he says it per family he urinates fine otherwise. And he is a diabetic but does not take diabetic medications. Patient only takes [place] and tramadol and family says on [place] 24 hours a day. Laboratory is unremarkable. CT was done over at [facility] where I am told I do not see the report but I was told it was negative. Had a chest x-ray that was negative. ED try to get an MRI but was unable because of his agitation. Family thinks that Friday morning he probably started having some urinary issues but the confusion started happening today and first noticed it after he fallen several times. He is supposed to see for his toe on Friday. He had a nearly identical presentation to [facility] back in 2017 after he had been on antibiotics started for submandibular abscess. He also was hyperglycemic at that time. He had extensive work-up including work-up for encephalitis and meningitis which was negative . His encephalopathy was felt to be secondary to infection/sepsis hyperglycemia and he had urinary retention at that time as well. He recovered fairly rapidly with treatment, antibiotics and control of his blood glucose and King catheter placement. 08/04 Patient was treated with the Haldol Ativan and Precedex was initially placed but did not seem to help so stopped and mainly controlled by the Haldol and Ativan. Patient appears comfortable little restless at times. Per the nurse the times that he becomes agitated is really only when nursing does cares. We will attempt to wake him up after lunch to see how he responds and was menta tion is. 08/05 Mentation much improved appears to be close to baseline. Family present. Will advance diet and likely transfer out to [facility] if he continues to maintain good mentation through the rest of the morning. Had a low grade fever overnight and WBC increased. No complaints from the patient. evaluated the toe and did not feel the patient had osteomyelitis and MRI of the foot would be low yield. Arterial Doppler ultrasound of left lower extremity ordered. Started Lopressor 50 mg twice daily for irregular tachycardia likely atrial fibrillation or atrial flutter with RVR. 08/06 Patient is probably at his baseline mental status. Left lower extremity arterial duplex showed significant stenosis in the distal anterior tibial and proximal posterior tibial arteries, otherwise no significant stenosis. MRI brain did not show any acute process, there was mild atrophy and patchy chronic ischemic changes typical for the patient's age. Increase Lopressor to 75 mg twice daily. Repeat EKG for rhythm assessment. Blood culture showing no growth to date at 2 days. WBC trending down, CRP 2.9. Physical exam Head: Atraumatic, normal inspection. Eyes: normal appearance, no scleral icterus. Neck: full ROM Respiratory: no respiratory distress. Cardiovascular: normal rate and rhythm, S1, S2. GI/Abdominal: soft, nontender, no guarding. Extremities: Dry green green at the distal right toe. Neurological: CN II-XII intact, intact motor, intact sensation. Psychiatric: normal mood. Skin: warm, normal color Constitutional Vitals: Vital Signs Temp Pulse Resp BP Pulse Ox 97.8 F 84 23 H 140/94 95 08/05/21 08:01 08/04/21 05:01 08/05/21 08:10 08/05/21 08:01 08/05/21 08:10 Period Temp Pulse Resp BP Sys/Bagley Pulse Ox Last 24 Hr 97.8 F-100.6 F 15-42 115-199/52-122 83-99 Intake and Output 08/04/21 08/05/21 08/05/21 21:59 05:59 13:59 Intake Total 50 1540 637 Output Total 450 650 Balance -400 890 637 Weight 55.61 kg Intake & Output: Intake & Output 08/04/21 08/05/21 08/05/21 21:59 05:59 13:59 Intake Total 50 1540 637 Output Total 450 650 Balance -400 890 637 Weight 55.61 kg Intake: IV 50 1060 637 Zosyn 3.375 gm In Dextrose 5% 50 50 50 in Water 50 ml @ 100 mls/hr IV Q6H [facility] Rx#:[id number] Potassium Chloride 20 Meq In 1010 587 Sodium Chloride 0.45% 1,000 ml @ 70 mls/hr IV .[id number] [facility] Rx# :[id number] Oral 480 Output: Urine Catheter Amount 450 650 Other: Urine Appearance Cloudy Clear Uretheral (King) Clear Urine Color Dark Martine Dark Yellow Uretheral (King) Dark Yellow Urine Odor Normal Stool Size Copious Stool Color Brown Yellow Stool Consistency Soft Formed OBJ DATA Labs CBC & Chem 7: 08/06/21 05:45 08/06/21 05:45 Labs: Abnormal Lab Results 08/05/21 08/05/21 08/04/21 05:42 05:42 08:40 WBC 20.5 H RBC 4.48 L MCV 102.0 H MCH 36.2 H MPV 12.9 H Neut % (Auto) 81.3 H Lymph % (Auto) 9.2 L Nolan # (Auto) 1.95 H Seg Neutrophils % Lymphocytes % Absolute Neutrophils 16.70 H RBC Morphology Macrocytosis Anion Gap 17.0 H BUN 30 H Creatinine Glucose 254 H Hemoglobin A1c Uric Acid Direct Bilirubin AST Lactate Dehydrogenase Folate > 20.0 H 08/04/21 08/04/21 08/03/21 05:24 05:24 17:45 WBC 17.3 H RBC 4.57 L MCV 100.4 H MCH 35.7 H MPV 12.9 H Neut % (Auto) Lymph % (Auto) Nolan # (Auto) Seg Neutrophils % 86 H Lymphocytes % 3 L Absolute Neutrophils RBC Morphology Abnormal A Macrocytosis 1+ A Anion Gap BUN Creatinine 0.6 L Glucose 134 H Hemoglobin A1c 6.8 H Uric Acid 2.2 L Direct Bilirubin 0.3 H AST 85 H Lactate Dehydrogenase 299 H Folate Meds: Medications Acetaminophen (Acetaminophen 325 Mg Tablet) 650 mg PO Q6HP PRN; Protocol PRN Reason: Per Pain Protocol/Fever > 101 Hydrocodone Bitart/Acetaminophen (Hydrocodone/Apap 10/325mg Tablet) 1 tab PO Q6H PRN; Protocol PRN Reason: pain Albuterol/Ipratropium (Ipratropium/Albuterol 3 Ml Ampul.Neb) 3 ml NEB Q4HP PRN PRN Reason: Shortness Of Breath Dextrose (Dextrose 50% 50 Ml Syringe) 50 ml IV UD PRN PRN Reason: Hypoglycemia Last Admin: 08/04/21 13:41 Dose: 25 ml Documented by: Diagnostic Test (Pha) (Accu-Chek 1 Each Strip) 1 each FS Q4 [facility] Enoxaparin Sodium (Enoxaparin 40 Mg/0.4 Ml Syringe) 40 mg SQ DAILY [facility] Last Admin: 08/05/21 07:46 Dose: 40 mg Documented by: Glucose (Dextrose 31 Gm Oral.Susp) 15 gm PO PRN PRN PRN Reason: Hypoglycemia Haloperidol Lactate (Haloperidol Lactate 5 Mg/Ml Vial) 5 mg IV Q4HP PRN PRN Reason: ANXIETY/SEDATION Last Admin: 08/04/21 03:46 Dose: 5 mg Documented by: Potassium Chloride 40 meq/ (Dextrose) 520 mls @ 130 mls/hr IV UD PRN PRN Reason: Potassium < 3 Magnesium Sulfate (Magnesium Sulfate) 2 gm in 50 mls @ 50 mls/hr IV UD PRN PRN Reason: Magnesium </= 1.6 Piperacillin Sod/Tazobactam (Sod 3.375 gm/ Dextrose) 50 mls @ 100 mls/hr IV Q6H [facility]; Protocol Last Admin: 08/05/21 12:02 Dose: 100 mls/hr Documented by: Dexmedetomidine HCl 400 mcg/ (Premix) 100 mls @ 3.402 mls/hr IV .Q24H [facility]; Protocol Last Admin: 08/04/21 21:43 Dose: Not Given Documented by: Sodium Chloride (Sodium Chloride 0.9%) 1,000 mls @ 84 mls/hr IV .[id number] [facility] Stop: 08/05/21 20:09 Last Admin: 08/05/21 08:18 Dose: 84 mls/hr Documented by: Insulin Human Lispro (Insulin Lispro 1 Unit/0.01 Ml Unit) 0 unit SQ Q4 [facility]; Protocol Labetalol HCl (Labetalol 5 Mg/Ml Ml) 0 mg IV Q2HP PRN PRN Reason: Hypertension Last Admin: 08/04/21 19:40 Dose: 10 mg Documented by: Lorazepam (Lorazepam 2 Mg/Ml Vial) 1 mg IV Q1HP PRN PRN Reason: ANXIETY/SEDATION Last Admin: 08/05/21 00:27 Dose: 1 mg Documented by: Metoclopramide HCl (Metoclopramide 10 Mg/2 Ml Vial) 10 mg IV Q6HP PRN PRN Reason: Nausea And Vomiting Metoprolol Tartrate (Metoprolol Tartrate 5 Mg/5 Ml Vial) 5 mg IV Q2MIN PRN PRN Reason: Tachyarrhythmias Last Admin: 08/04/21 13:26 Dose: 5 mg Documented by: Morphine Sulfate (Morphine 4 Mg/Ml Vial) 0 mg IV Q3HP PRN PRN Reason: Pain Last Admin: 08/05/21 04:15 Dose: 4 mg Documented by: Ondansetron HCl (Ondansetron 4 Mg/2 Ml Vial) 4 mg IV Q4HP PRN PRN Reason: Nausea And Vomiting Pantoprazole Sodium (Pantoprazole 40 Mg Vial) [facility] Last Admin: 08/05/21 07:47 Dose: 40 mg Documented by: Polyethylene Glycol (Polyethylene Glycol 3350 17 Gm Packet) 17 gm PO DAILYP PRN PRN Reason: Constipation Potassium Chloride (Potassium Chloride 20 Meq Tablet) 40 meq PO UD PRN PRN Reason: Potssium is 3-3.5 Potassium Chloride (Potassium Chloride 20 Meq Tablet) 40 meq PO UD PRN PRN Reason: Potassium < 3 Senna (Sennosides 1 Tablet) 2 tab PO DAILYP PRN PRN Reason: Constipation Sodium Chloride (0.9 % Sodium Chloride 10 Ml Syringe) 10 ml IV Q8 [facility] Last Admin: 08/05/21 05:56 Dose: 10 ml Documented by: Tamsulosin HCl (Tamsulosin 0.4 Mg Capsule) 0.4 mg PO [facility] Last Admin: 08/04/21 20:38 Dose: Not Given Documented by: A/P Narrative A/P Narrative: A: *Resolved mEncephalopathy superimposed most certainly on some degree of neurocognitive dysfunction: 2/2 multifactorial including toe infection, ?urinary, urinary retention from chronic SAVAGE. -MRI brain negative for acute changes, positive for mild atrophy typical for the patient's age. -Improving *SAVAGE from BPH, acute on chronic: King catheter placed by Dr. Braun *Suspected infectious source: either Left toe or (although UA unremarkable, but has been on oral Abx) or both *Left great toe dry gangrene: *Possible underlying Neurocognitive disorder (h/o delerium): -severely agitated with aggressive behaviors *Irregular narrow complex tachycardia likely A. fib or atrial flutter *h/o DM: but does not take medication -A1c 6.8 *Chronic back/neck pain: On [place] and tramadol daily *Macrocytosis: check b12/folate *Peripheral artery disease *Elevated LFTs P: -Broad spectrum Abx (zosyn) until BC cx's return & toe evaluated by Alex/Jacob -Likely de-escalate antibiotics tomorrow. -Monitor LFTs. -Lopressor 50 milligrams twice daily, IV Lopressor as needed for tachycardia. -Maintain King catheter for now. -Dr. James/Alex consulted -Flomax -pt/ot -ppx: lovenox Time Spent With Patient Time: Total time spent is greater than 50% in coordination of care (as documented) at patient's floor/unit and/or counseling patient: QUALITY VTE Deep Vein Thrombosis/Pulmonary Embolism Present on Admission: No
--- NOTE | 2021-08-05 14:28 | Orthopedic Consult Note ---
HPI Data of Consult Consult date: 09/03/21 Requesting physician: Boaz Ramírez Primary Care Provider: Mustapha Maravilla MD Consult Narrative Patient Information: Note initiated : 08/05/21 at 2:18 pm Service Date, if different from initiated Date: [] Patient: Gianluca Burleson 76 y/o M admitted on 08/03/21 for Altered loc. Chief Complaint: [Left great toe gangrene] For the past few weeks he has been treated for an ingrowing toenail of the left great toe. He has had antibiotics to treat infection relating to this great toe. He was referred outpatient for podiatry but presented to the hospital at [facility] this past week with acute altered mental status. His daughter reports his feet were very swollen upon admission and have since come down in swelling significantly. He has been diagnosed with diabetes for several decades and has not had major foot issues in the past. He does have loss of sensation to his feet but does suffer from neuropathic pain. Chief complaint: Altered mental status Reason for consult: Referral for Left great toe gangrene cc:: CC: Boaz Ramírez [facility] PFSH All Active Problems (Updated 08/03/21 @ 19:35 by Veronika Villegas PA-C) Acute alteration in mental status (Acute) Acute urinary retention (Acute) Altered mental status, unspecified (Acute) Acute urinary retention (Acute) Cellulitis of toe (Acute) Onychomycosis (Acute) Cellulitis and abscess of foot (Acute) Medicare annual wellness visit, subsequent (Acute) Scoliosis (Chronic) DDD (degenerative disc disease), lumbar (Chronic) Polymyalgia rheumatica (Chronic) Screening for malignant neoplasm of prostate (Chronic) Anemia (Chronic) Elevated PSA (Chronic) halfway current use of opiate analgesic (Chronic) Encounter for preventative adult health care examination (Chronic) Refractory nausea and vomiting (Acute) UTI (urinary tract infection) (Acute) Macrocytic anemia (Acute) Pericardial effusion without cardiac tamponade (Acute) Vomiting alone (Acute) Kidney stone (Acute) Spinal stenosis (Chronic) Hostile behavior (Chronic) Fatigue (Chronic) Chronic pain (Chronic) Agitated depression (Chronic) Hypertension (Chronic) Headache (Chronic) Delirium (Chronic) 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) Diabetes (Chronic) Sepsis (Chronic) Hyperglycemia (Chronic) Altered mental status (Chronic) Keratoacanthoma (Chronic) Medical History (Updated 08/03/21 @ 19:35 by Veronika Villegas PA-C) Agitated depression Altered mental status secondary to infection and hyperglycemia Anemia Chronic pain DDD (degenerative disc disease), lumbar Delirium Diabetes Elevated PSA Encounter for preventative adult health care examination Fatigue Headache Hostile behavior Hyperglycemia 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 Sister No problems noted. Brother , Age 69 Cancer Other Diabetes HTN (hypertension) Social History marital status: alcohol intake frequency: does not drink substance use type: does not use MEDS/ALLERGIES Home Medications and Allergies Home Medications Medication Instructions Recorded Confirmed Type tramadol 50 mg tablet 100 mg PO Q6H #240 tab 04/23/21 08/04/21 Rx terbinafine HCl 250 mg tablet 250 mg PO QDAY #30 tab 07/25/21 08/04/21 Rx hydrocodone 10 mg-acetaminophen 1 tab PO Q6H PRN #120 tab 07/27/21 08/04/21 Rx 325 mg tablet cephalexin 500 mg capsule 500 mg PO TID 7 Days #21 cap 07/31/21 08/04/21 Rx Allergies Allergy/AdvReac Type Severity Reaction Status Date / Time Amoxicillin AdvReac Intermediate unable to Verified 08/03/21 17:08 urinate Physical Examination Narrative Narrative: Narrative: Ankle & Foot left: Ankle appearance: swelling and erythema Foot appearance: erythema and other (Left hallux has a 2x1cm portion of tissue necrosis that is dry under the great toenail. This is localized to the distal lateral aspect of the tuft. X-ray appears negative for osteomyeltis. There is a foreign body on the plantar aspect of the great toe likley unrelated due to lack of wound and site) Foot swelling: medial and toes A/P Time Spent With Patient Time: Total time spent is greater than 50% in coordination of care (as documented) at patient's floor/unit and/or counseling patient: Local wound care Debridement of the distal 1/2 of ingrown nail portion. Continue daily evaluation and local wound care of necrotic portion Recommending comprehensive vascular evaluation of lower extremities Total time spent with greater than 50% in coordination of care (as documented) at patient's floor/unit and/or counseling patient:: 25 - 35 minutes
[2021-08-05] MEDS: HYDROcodone/APAP 10/325MG TABLET PO PRN (17:17)
--- NOTE | 2021-08-05 17:19 | EKG ---
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
--- NOTE | 2021-08-05 17:22 | EKG ---
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 Uncertain mechanism Nonspecific lateral ST changes Electronically Signed On 08-05-2021 17:21:42 PST by Logan Sanabria /store/M0/[id number]
[2021-08-05] MEDS: MELATONIN 3 MG TABLET PO SCH (20:59)
[2021-08-05] MEDS: TAMSULOSIN 0.4 MG CAPSULE PO SCH (20:59)
[2021-08-05] MEDS ORDERED: diphenhydrAMINE 25 MG CAPSULE PO ONE (21:00)
[2021-08-05] MEDS: DEXMEDETOMIDINE 400 MCG in PREMIX 1 BAG IV SCH (22:22)
[2021-08-05] MEDS: METOPROLOL TARTRATE 5 MG/5 ML VIAL IV PRN ×2 (23:08→23:34)
[2021-08-06] MEDS: LORazepam 2 MG/ML VIAL IV PRN (00:22)
[2021-08-06] MEDS: METOPROLOL TARTRATE 5 MG/5 ML VIAL IV PRN ×3 (01:01→16:21)
[2021-08-06] MEDS: HYDROcodone/APAP 10/325MG TABLET PO PRN ×4 (01:07→17:44)
[2021-08-06] MEDS ORDERED: METOPROLOL TARTRATE 50 MG TABLET PO SCH ×2 (01:18→09:00)
[2021-08-06] MEDS ORDERED: METOPROLOL TARTRATE 25 MG TABLET ONE (01:26)
[2021-08-06] MEDS: INSULIN LISPRO 1 UNIT/0.01 ML UNIT SQ SCH ×5 (05:19→20:39)
[2021-08-06] MEDS: PIPERACILLIN SODIUM/TAZOBACTAM 3.375 GM in DEXTROSE 5% IN WATER 50 ML IV SCH ×3 (05:20→17:41)
[2021-08-06] MEDS: 0.9 % SODIUM CHLORIDE 10 ML SYRINGE IV SCH ×3 (05:22→20:40)
[2021-08-06 06:48] LABS: Basophils # (Auto) 0.03 K/mcL (0.00-0.30); Basophils % (Auto) 0.2 % (0.0-2.0); Eosinophils # (Auto) 0.06 K/mcL (0.00-0.70); Eosinophils % (Auto) 0.4 % (0.0-7.0); Hematocrit 45.8 % (40.1-51.0); Hemoglobin 15.8 g/dL (13.7-17.5); Lymphocytes # (Auto) 2.35 K/mcL (1.50-4.80); Mean Cell Volume 104.3 fL (80.0-100.0); Mean Corpuscular HGB Conc 34.5 g/dL (31.0-36.0); Mean Platelet Volume 12.9 fL (7.4-10.4); Monocytes # (Auto) 1.33 K/mcL (0.10-0.90); Monocytes % (Auto) 8.5 % (1.0-12.0); Neutrophils % (Auto) 75.9 % (38.0-78.0); Platelet Count 136 K/mcL (140-440); RBC 4.39 M/mcL (4.63-6.08); Red Cell Distribution Width 11.9 % (11.5-14.5); WBC 15.6 K/mcL (4.5-11.0)
[2021-08-06 07:10] LABS: ALT/SGPT 65 U/L (<40); AST/SGOT 157 U/L (<40); Albumin 3.6 gm/dL (3.2-5.2); Albumin/Globulin Ratio 1.4 (1.0-2.3); Alkaline Phosphatase 41 U/L (39-117); Bilirubin,Direct 0.3 mg/dL (<0.3); Bilirubin,Total 1.3 mg/dL (0.1-1.0); Blood Urea Nitrogen 19 mg/dL (8-23); Calcium 8.8 mg/dL (8.6-10.4); Carbon Dioxide 24 mmol/L (22-30); Chloride 106 mmol/L (96-108); Globulin 2.6 gm/dL (2.2-3.7); Glomerular Filtration Rate 96; Glucose 183 mg/dL (70-105); Lactate Dehydrogenase 375 U/L (135-225); Phosphorous 2.3 mg/dL (2.5-4.5); Triglycerides 78 mg/dL (<150); Uric Acid 2.8 mg/dL (2.5-8.0)
[2021-08-06] MEDS: PANTOPRAZOLE 40 MG VIAL IV SCH (07:28)
[2021-08-06] MEDS: ENOXAPARIN 40 MG/0.4 ML SYRINGE SQ SCH (07:42)
[2021-08-06] MEDS: morphine 4 MG/ML VIAL IV PRN (08:03)
--- NOTE | 2021-08-06 08:28 | Ultrasound Report ---
CLINICAL INFORMATION: Left lower extremity pain. Evaluate for arterial insufficiency COMPARISON: None. FINDINGS: The attached sheet IMPRESSION: The common iliac, external iliac, common femoral, profunda femoral, superficial femoral and popliteal arteries contain scattered calcific plaque but no stenoses. Trifurcation arteries are patent the level of foot with significant stenoses (greater than 50%) in the distal anterior tibial and the proximal posterior tibial arteries. Interpreted and Authenticated by: Gianluca Joyce 08/06/21
--- NOTE | 2021-08-06 12:13 | Magnetic Resonance Report ---
CLINICAL INFORMATION: History of diabetes and altered level of consciousness COMPARISON: None. TECHNIQUE:Sagittal T1 FLAIR, axial T1 FLAIR, T2 FLAIR propeller, T2 propeller, gradient, diffusion, ADC and coronal T2 weighted images were acquired. FINDINGS: The ventricles, sulci, fissures and cisterns are symmetrically enlarged compatible with mild age-related atrophy extra-axial fluid collections or mass are appreciated. Mild patchy chronic ischemic changes in the cerebral white matter is compatible is typical for age. The signal within the carnes-white matter of the cerebrum, brainstem and cerebellum is, otherwise, unremarkable. The signal void in intracerebral arteries, extra-axial cranial nerves, pituitary, orbits and paranasal sinuses are all normal. IMPRESSION: Mild atrophy and patchy chronic ischemic changes in the cerebral white matter typical for age. Interpreted and Authenticated by: Gianluca Joyce 08/06/21
--- NOTE | 2021-08-06 20:10 | EKG ---
[facility] Test Date: 2021-08-06 Pat Name: Gianluca Burleson Department: 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 Measurements Intervals [place] Rate: 77 P: [place]: QRS: -35 QRSD: 92 T: 63 QT: 359 QTc: 407 Interpretive Statements Atrial flutter with predominant 4:1 AV block Left axis deviation Electronically Signed On 08-06-2021 20:10:27 PST by Weston Grant D.O. /store/M0/[id number]
[2021-08-06] MEDS: DEXMEDETOMIDINE 400 MCG in PREMIX 1 BAG IV SCH (20:28)
[2021-08-06] MEDS: TAMSULOSIN 0.4 MG CAPSULE PO SCH (20:38)
[2021-08-06] MEDS: METOPROLOL TARTRATE 50 MG TABLET PO SCH (20:38)
[2021-08-06] MEDS: MELATONIN 3 MG TABLET PO SCH (20:40)
[2021-08-07] MEDS: HYDROcodone/APAP 10/325MG TABLET PO PRN ×3 (00:13→13:26)
[2021-08-07] MEDS: PIPERACILLIN SODIUM/TAZOBACTAM 3.375 GM in DEXTROSE 5% IN WATER 50 ML IV SCH ×2 (01:10→05:49)
[2021-08-07] MEDS: INSULIN LISPRO 1 UNIT/0.01 ML UNIT SQ SCH ×5 (01:10→16:22)
[2021-08-07] MEDS: 0.9 % SODIUM CHLORIDE 10 ML SYRINGE IV SCH ×2 (05:49→13:36)
[2021-08-07 06:46] LABS: Basophils # (Auto) 0.04 K/mcL (0.00-0.30); Basophils % (Auto) 0.3 % (0.0-2.0); Eosinophils % (Auto) 0.7 % (0.0-7.0); Hematocrit 43.4 % (40.1-51.0); Hemoglobin 15.2 g/dL (13.7-17.5); Lymphocytes # (Auto) 2.44 K/mcL (1.50-4.80); Lymphocytes % (Auto) 18.2 % (15.5-49.0); Mean Cell Volume 100.9 fL (80.0-100.0); Mean Platelet Volume 12.7 fL (7.4-10.4); Monocytes # (Auto) 1.46 K/mcL (0.10-0.90); Monocytes % (Auto) 10.9 % (1.0-12.0); Neutrophils % (Auto) 69.9 % (38.0-78.0); Platelet Count 161 K/mcL (140-440); Red Cell Distribution Width 11.8 % (11.5-14.5); WBC 13.4 K/mcL (4.5-11.0)
[2021-08-07 07:08] LABS: ALT/SGPT 79 U/L (<40); AST/SGOT 153 U/L (<40); Albumin 3.6 gm/dL (3.2-5.2); Albumin/Globulin Ratio 1.5 (1.0-2.3); Alkaline Phosphatase 38 U/L (39-117); Blood Urea Nitrogen 16 mg/dL (8-23); Calcium 8.6 mg/dL (8.6-10.4); Carbon Dioxide 24 mmol/L (22-30); Chloride 102 mmol/L (96-108); Globulin 2.4 gm/dL (2.2-3.7); Glomerular Filtration Rate 96; Glucose 141 mg/dL (70-105)
[2021-08-07] MEDS: METOPROLOL TARTRATE 50 MG TABLET PO SCH (07:19)
[2021-08-07] MEDS ORDERED: AMOXICILLIN/POTASSIUM CLAV 875 MG TABLET PO SCH (08:00)
[2021-08-07] MEDS: ENOXAPARIN 40 MG/0.4 ML SYRINGE SQ SCH (08:11)
--- NOTE | 2021-08-07 14:04 | Discharge Summary ---
Discharge Provider Provider Patient information: Note initiated : 08/07/21 at 1:56 pm Service Date, if different from initiated Date: [] Patient: Gianluca Burleson 76 y/o M admitted on 08/03/21 for Altered loc. Chief Complaint: [] Date of admission: 08/03/21 21:07 Discharge date: 08/07/21 Primary care physician: Mustapha Maravilla MD Consults: 08/03/21 Consult to Physician [CONS] Stat Comment: Consulting Provider: Boaz Ramírez Reason For Exam: Physician to Consult 08/03/21 21:14 Consult to Physician [CONS] Routine Comment: toe Consulting Provider: Fox Johnson Reason For Exam: Physician to Consult Discharge Meds Discharge Medications Home Medications tramadol 50 mg tablet 100 mg PO Q6H #240 tab 04/23/21 [Rx Confirmed 08/04/21 Last Taken Unknown] terbinafine HCl 250 mg tablet 250 mg PO QDAY #30 tab 07/25/21 [Rx Confirmed 08/04/21 Last Taken Unknown] hydrocodone 10 mg-acetaminophen 325 mg tablet 1 tab PO Q6H PRN #120 tab 07/27/21 [Rx Confirmed 08/04/21 Last Taken Unknown] amoxicillin 875 mg-potassium clavulanate 125 mg tablet 1 tab PO BID 4 Days #8 tab 08/07/21 [Rx Last Taken Unknown] metoprolol tartrate 50 mg tablet (Lopressor) 75 mg PO BID #60 tab 08/07/21 [Rx Last Taken Unknown] tamsulosin 0.4 mg capsule 0.4 mg PO HS #30 cap 08/07/21 [Rx Last Taken Unknown] COURSE Hospital Course Hospital course: Mr. Burleson is a 76 year old M Presented to [facility] with altered mental status severely confused falling speaking gibberish. He is combative towards EMS and given 300 mg of ketamine. In the ED is screaming at the nurses and I tried to place Woodard catheter and were unable to do so so Dr. Braun was contacted here at [facility] patient was brought over to [facility] Doctor Aparna Attempted Place, Woodard in the ED but was unable and thus taken to the OR to perform Woodard catheter placement. At [facility] he was given Ativan times multiple doses as well as fentanyl in addition to the ketamine given by EMS. Over here [place] he was given Zyprexa. Patient more calm than was prior but still quite agitated and constantly trying to move against the four-point restraints. He is afebrile has a very mild leukocytosis 11.4 has been on antibiotics for toe infection on the left great toe which looks like dry gangrene. Urinalysis is unimpressive although he has been on antbiotics. He had significant urinary retention. He has a history of urinary retention with infections is not on Flomax because he says it per family he urinates fine otherwise. And he is a diabetic but does not take diabetic medications. Patient only takes [place] and tramadol and family says on [place] 24 hours a day. Laboratory is unremarkable. CT was done over at [facility] where I am told I do not see the report but I was told it was negative. Had a chest x-ray that was negative. ED try to get an MRI but was unable because of his agitation. Family thinks that Friday morning he probably started having some urinary issues but the confusion started happening today and first noticed it after he fallen several times. He is supposed to see for his toe on Friday. He had a nearly identical presentation to [facility] back in 2016 after he had been on antibiotics started for submandibular abscess. He also was hyperglycemic at that time. He had extensive work-up including work-up for encephalitis and meningitis which was negative . His encephalopathy was felt to be secondary to infection/sepsis hyperglycemia and he had urinary retention at that time as well. He recovered fairly rapidly with treatment, antibiotics and control of his blood glucose and Woodard catheter placement. 08/04 Patient was treated with the Haldol Ativan and Precedex was initially placed but did not seem to help so stopped and mainly controlled by the Haldol and Ativan. Patient appears comfortable little restless at times. Per the nurse the times that he becomes agitated is really only when nursing does cares. We will attempt to wake him up after lunch to see how he responds and was mentation is. 08/05 Mentation much improved appears to be close to baseline. Family present. Will advance diet and likely transfer out to [facility] if he continues to maintain good mentation through the rest of the morning. Had a low grade fever overnight and WBC increased. No complaints from the patient. evaluated the toe and did not feel the patient had osteomyelitis and MRI of the foot would be low yield. Arterial Doppler ultrasound of left lower extremity ordered. Started Lopressor 50 mg twice daily for irregular tachycardia likely atrial fibrillation or atrial flutter with RVR. 08/06 Patient is probably at his baseline mental status. Left lower extremity arterial duplex showed significant stenosis in the distal anterior tibial and proximal posterior tibial arteries, otherwise no significant stenosis. MRI brain did not show any acute process, there was mild atrophy and patchy chronic ischemic changes typical for the patient's age. Increase Lopressor to 75 mg twice daily. Repeat EKG for rhythm assessment. Blood culture showing no growth to date at 2 days. WBC trending down, CRP 2.9. 08/07 Afebrile, WBC trending down, blood cultures showing no growth to date after 3 days. Transitioned to Augmentin, plan is to complete 7 days of antibiotics. Discussed anticoagulation for atria flutter, the patient will think about it and wants to discuss anticoagulation further with his PCP. Discharged with woodard catheter and urology follow up, continued Flomax at discharge. Follow up with urology for toe gangrene. Discharged to home with family. Post hospital follow up; -Discuss anticoagulation for atrial flutter. -Evaluate rate control, the patient was discharged on Lopressor 75 mg BID. -Monitor glycemic for diabetes mellitus, hemoglobin A1c was 6.8. The patient is currently managing this with diet. -Follow up with Podiatry for toe gangrene. -Follow up with urology for urinary retention requiring a woodard catheter that was placed with conscious sedation. Physical exam Head: Atraumatic, normal inspection. Eyes: normal appearance, no scleral icterus. Neck: full ROM Respiratory: no respiratory distress. Cardiovascular: normal rate and rhythm, S1, S2. GI/Abdominal: soft, nontender, no guarding. Extremities: Dry green green at the distal right toe. Neurological: CN II-XII intact, intact motor, intact sensation. Psychiatric: normal mood. Skin: warm, normal color Discharge diagnosis: Encephalopathy Secondary discharge diagnosis: Toe gangrene Time Spent with Patient Time attestation: Total time spent providing and/or coordinating discharge services: EXAM Constitutional Vitals: Temp Pulse Resp BP Pulse Ox 97.2 F 94 H 18 163/96 95 08/07/21 08:00 08/07/21 08:00 08/07/21 08:00 08/07/21 08:00 08/07/21 08:00 Discharge Data Data Completed and Pending Labs on day of discharge: Labs from last 24 hours 08/07/21 08/07/21 05:24 05:24 WBC 13.4 H RBC 4.30 L Hgb 15.2 Hct 43.4 MCV 100.9 H MCH 35.3 H MCHC 35.0 RDW 11.8 Plt Count 161 MPV 12.7 H Neut % (Auto) 69.9 Lymph % (Auto) 18.2 [place] % (Auto) 10.9 Eos % (Auto) 0.7 Baso % (Auto) 0.3 Lymph # (Auto) 2.44 [place] # (Auto) 1.46 H Eos # (Auto) 0.10 Baso # (Auto) 0.04 Absolute Neutrophils 9.33 H Sodium 141 Potassium 3.5 Chloride 102 Carbon Dioxide 24 Anion Gap 15.0 BUN 16 Creatinine 0.6 L GFR Calculation 96 Glucose 141 H Calcium 8.6 Total Bilirubin 1.0 AST 153 H ALT 79 H Alkaline Phosphatase 38 L Total Protein 6.0 Albumin 3.6 Globulin 2.4 Albumin/Globulin Ratio 1.5 Preliminary micro results at discharge 08/03/21 17:54 Blood Culture - Preliminary Blood 08/03/21 17:45 Blood Culture - Preliminary Blood Discharge Plan Patient/Caregiver Discharge Instructions Activity: increase activity as tolerated Diet: Cardiac and Consistent Carbohydrate Prescriptions: New amoxicillin-pot clavulanate 875-125 mg tablet 1 tab PO BID 4 Days Qty: 8 0RF metoprolol tartrate [Lopressor] 50 mg tablet 75 mg PO BID Qty: 60 4RF tamsulosin 0.4 mg Capsule 0.4 mg PO HS Qty: 30 4RF Continued hydrocodone-acetaminophen 10-325 mg tablet 1 tab PO Q6H PRN (Reason: pain) Qty: 120 0RF tramadol 50 mg tablet 100 mg PO Q6H Qty: 240 5RF terbinafine HCl 250 mg tablet 250 mg PO QDAY Qty: 30 2RF Discontinued cephalexin 500 mg capsule 500 mg PO TID 7 Days Qty: 21 0RF Follow Up Plan Follow up with: Mustapha Maravilla MD [Primary Care Provider] - Laci Braun MD [Physician] - 08/16/21 9:45 am Fox Johnson DPM [Physician] - Patient Disposition: Home, Self-Care Overall status at discharge: patient is progressing back to baseline Discharge Orders: Discharge Order (Routine); Ordered 08/07/21 Ordered By: Rubin RAOMS VTE Deep Vein Thrombosis/Pulmonary Embolism Present on Admission: No
== END 2021-08-07 16:15 | disposition home or self-care (01) | DRG 71 ==
LOC: ED 17:07 → ICU 21:07 → MEDSUR 08-05 16:15
PROVIDERS: ADMIT Internal Medicine; ATTEND Internal Medicine

== ENCOUNTER 2022-09-08 22:28 | Inpatient (IN) ==
[2022-09-08] MEDS ORDERED: 0.9 % SODIUM CHLORIDE 1,000 ML IV ONE (22:31)
[2022-09-08] MEDS ORDERED: LIDOCAINE 2% URO-JET 10 ML JEL.PF.APP UR ONE (22:41)
[2022-09-08] MEDS ORDERED: LORazepam 2 MG/ML VIAL IV ONE ×3 (22:44→23:54)
[2022-09-08] MEDS ORDERED: ADENOSINE 3 MG/ML VIAL IV ONE ×2 (23:09→23:55)
[2022-09-08 23:10] LABS: POC Calcium, Ionized 1.18 (1.16-1.32); POC Creatinine 0.5 (0.6-1.2)
[2022-09-08] MEDS ORDERED: cefTRIAXone 2 GM in DEXTROSE 5% IN WATER 50 ML IV ONE (23:13)
--- NOTE | 2022-09-08 23:32 | Emergency Department Note ---
Altered Mental Status HPI General Chief Complaint: Altered Mental Status Stated Complaint: ams Time Seen by Provider: 09/08/22 22:30 Source: family and EMS Mode of arrival: EMS Limitations: altered mental status History of Present Illness HPI Narrative: Narrative: Patient arrives to the ED via EMS with concerns of altered mental status. Family is at bedside. EMS state the patient was extremely agitated when they arrived they had to give him some ketamine in order to fully evaluate him. Family states the patient has not peed in over 6 days. States that he has a history of urinary retention as well as frequent UTI with sepsis. They state he has not been himself lately states he been extremely tired and weak and not as talkative. They state when he does talk he does not make any sense. They state this is consistent with previous UTI symptoms. He said that he had a TURP with Dr. Braun and a King placed last time. Patient refuses to have King catheter placed. He just keeps active for antibiotics per family. Family denies fever, vomiting, diarrhea, complaints of abdominal pain, complaints of cardiac chest pain, shortness of breath, cough or sputum production. They deny any other alleviating or aggravating factors. Related Data Home Medications Medication Instructions Recorded Confirmed acetaminophen 500 mg tablet 500 mg PO Q6H PRN 08/16/21 06/11/22 (Tylenol Extra Strength) insulin degludec 100 unit/mL (3 9 unit subcut QDAY 01/17/22 06/11/22 mL) subcutaneous pen (Tresiba FlexTouch U-100 insulin) Previous Rx's Medication Instructions Recorded pen needle, diabetic 32 gauge x #100 ea 06/05/22" (Comfort EZ Pen Humphrey) tamsulosin 0.4 mg capsule 0.4 mg PO QDAY #90 caps 06/11/22 sulfamethoxazole 800 1 tab PO BID UTI 10 days #20 tabs 08/07/22 mg-trimethoprim 160 mg tablet (Bactrim DS) hydrocodone 10 mg-acetaminophen 1 tab PO Q6H PRN pain #120 tabs 08/12/22 325 mg tablet tramadol 50 mg tablet 100 mg PO Q6H #240 tabs 08/20/22 Allergies Allergy/AdvReac Type Severity Reaction Status Date / Time Amoxicillin AdvReac Intermediate unable to Verified 06/11/22 10:00 urinate Review of Systems ROS ROS Narrative: Narrative: All systems ED: reviewed and negative except as stated. [facility] Narrative Patient History Narrative: Narrative: Medical/Surgical/Family History All Active Problems (Updated 09/09/22 @ 03:42 by Bharath Louis DO) Acute UTI (Acute) Encephalopathy, metabolic (Acute) SVT (supraventricular tachycardia) (Acute) A-fib (Acute) Urinary tract infection with hematuria (Acute) Diabetic peripheral neuropathy associated with type 2 diabetes mellitus (Acute) DDD (degenerative disc disease), lumbar (Chronic) snf current use of opiate analgesic (Chronic) Hypertension (Chronic) Keratoacanthoma (Chronic) Altered mental status (Chronic) Hyperglycemia (Chronic) Sepsis (Chronic) Diabetes (Chronic) 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) Delirium (Chronic) Headache (Chronic) Agitated depression (Chronic) Chronic pain (Chronic) Fatigue (Chronic) Hostile behavior (Chronic) Spinal stenosis (Chronic) Kidney stone (Acute) Vomiting alone (Acute) Refractory nausea and vomiting (Acute) UTI (urinary tract infection) (Acute) Macrocytic anemia (Acute) Pericardial effusion without cardiac tamponade (Acute) Encounter for preventative adult health care examination (Chronic) Elevated PSA (Chronic) Anemia (Chronic) Screening for malignant neoplasm of prostate (Chronic) Polymyalgia rheumatica (Chronic) Scoliosis (Chronic) Medicare annual wellness visit, subsequent (Acute) Cellulitis and abscess of foot (Acute) Onychomycosis (Acute) Acute alteration in mental status (Acute) Acute urinary retention (Acute) Altered mental status, unspecified (Acute) Acute urinary retention (Acute) Cellulitis of toe (Acute) Bladder neck contracture (Acute) Medical History (Updated 09/09/22 @ 03:42 by Bharath Louis DO) Agitated depression Altered mental status secondary to infection and hyperglycemia Anemia Chronic pain DDD (degenerative disc disease), lumbar Delirium Diabetes Elevated PSA Encounter for preventative adult health care examination Fatigue Headache Hostile behavior Hyperglycemia 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 Sister No problems noted. Brother , Age 69 Cancer Other Diabetes HTN (hypertension) Social History Alcohol Intake Frequency: does not drink Substance Use: does not use Exam Narrative Narrative: Narrative: General Limitations: altered mental status General appearance: Present obtunded Head Head: Present atraumatic and normocephalic Eye Eye: Present PERRL and EOMI ENT ENT: Present normal oropharynx and mucous membranes dry Respiratory Respiratory: Present normal lung sounds bilaterally; Absent respiratory distress Cardiovascular Cardiovascular: Present tachycardia and irregular rhythm Adbominal Abdominal: Present soft; Absent tenderness Extremities Extremities: Present normal capillary refill; Absent tenderness Skin Skin: Present warm (WNL) and intact Course Course Course Narrative: Patient was evaluated for concerns of altered mental status. Family concerned about UTI. UA was obtained in fact did show UTI. Patient was tachycardic as well so an EKG was obtained that showed that he was in SVT. Patient was given IV adenosine his heart rate did not improve much. Was given IV Lopressor and his heart rate did improve. His family stated that he does have a history of A- fib although I could not find in his chart But I did find an old EKG that did not show A-fib/a flutter. Patient converted to A-fib on repeat EKG and he was given IV diltiazem. Patient seem to be in discomfort especially every time he tried to pee. He was given some IV morphine for his discomfort. Lab work was obtained and was relatively unremarkable with a normal white cell count with no leukocytosis. Patient's renal panel was unremarkable as well. Patient does not meet sepsis criteria. He is tachycardic and does have a source of infection. Patient was bolused some IV fluids. He was very agitated and uncooperative. He is pulling at his lines. Patient was given some IV Ativan for his agitation. CT of the head was obtained due to altered mental status with image reviewed myself with no acute intracranial findings include negative for stroke. Family states that they want to make patient a DNR and just wanted to do medical treatment. At this point due to patient's confusion and UTI believe would be prudent to admit patient to the hospitalist service. Case was discussed with claudia spitalist who has agreed to admit the patient. Reevaluation(s) Reevaluation #1: no Overall change in patient. He is still tachycardic and still has altered mental status. Time: 23:40 Consultations Consultation #1: Case discussed with hospitalist, Dr. duvall, who has agreed to admit the patient. Time: 03:05 Vital Signs Vital signs: Vital Signs Temperature 99 F 09/08/22 22:29 Pulse Rate 148 H 09/08/22 22:29 Respiratory Rate 14 09/08/22 22:29 Blood Pressure 183/124 09/08/22 22:29 Pulse Oximetry (%) 96 09/08/22 22:29 Oxygen Delivery Method Room Air 09/08/22 22:29 Temperature 100.4 F H 09/09/22 03:19 Pulse Rate 92 H 09/09/22 03:11 Respiratory Rate 14 09/09/22 03:11 Blood Pressure 130/76 09/09/22 03:11 Pulse Oximetry (%) 93 09/09/22 03:11 Oxygen Delivery Method Nasal Cannula 09/09/22 03:11 Oxygen Flow Rate (L/min) 2 09/09/22 03:11 MDM MDM Narrative Medical decision making narrative: Narrative: Differential Diagnosis Differential Diagnosis: UTI, sepsis, altered mental status Medical Records Medical records reviewed: Yes I reviewed the patient's medical records. Lab Data Lab results reviewed: Yes I reviewed the patient's lab results. 09/08/22 22:40 Labs: Lab Results 09/08/22 09/08/22 09/08/22 Range/Units 22:40 22:40 22:40 WBC 10.3 (4.5-11.0) K/mcL RBC 4.00 L (4.63-6.08) M/mcL Hgb 14.3 (13.7-17.5) g/dL Hct 41.4 (40.1-51.0) % POC Hct (41-55) MCV 103.5 H (80.0-100.0) fL MCH 35.8 H (26.0-34.0) pg MCHC 34.5 (31.0-36.0) g/dL RDW 12.7 (11.5-14.5) % Plt Count 206 (140-440) K/mcL MPV 10.9 (8.8-12.5) fL Immature Gran % (Auto) 0.4 (0.0-0.5) % Neut % (Auto) 74.5 (38.0-78.0) % Lymph % (Auto) 15.6 (15.5-49.0) % [place] % (Auto) 8.0 (1.0-12.0) % Eos % (Auto) 1.0 (0.0-7.0) % Baso % (Auto) 0.5 (0.0-2.0) % Lymph # (Auto) 1.61 (1.50-4.80) K/mcL [place] # (Auto) 0.82 (0.10-0.90) K/mcL Eos # (Auto) 0.10 (0.00-0.70) K/mcL Baso # (Auto) 0.05 (0.00-0.30) K/mcL Immature Gran # 0.04 (0.00-0.05) K/mcl Absolute Neutrophils 7.69 (1.80-8.00) K/mcL POC VBG pH (7.32-7.42) POC VBG pCO2 at Temp (41-51) POC VBG pO2 (25-40) POC VBG HCO3 (24-28) POC VBG Total CO2 (25-29) POC Venous O2 Sat (40-70) POC VBG Base Excess (-2-2) VBG Lactic Acid (0.5-2) POC Sodium (133-145) POC Potassium (3.3-5.1) POC Chloride (96-108) POC Total CO2 (22-30) POC BUN (6-20) POC Creatinine (0.6-1.2) POC Glucose (70-105) POC WB Ioniz Calcium (1.16-1.32) Total Bilirubin 0.6 (0.1-1.0) mg/dL Direct Bilirubin 0.3 H (<0.3) mg/dL AST 38 (<40) U/L ALT 46 H (<40) U/L Alkaline Phosphatase 71 (39-117) U/L Ammonia (16-60) umol/L Total Protein 6.8 (5.9-8.4) gm/dL Albumin 4.3 (3.2-5.2) gm/dL Globulin 2.5 (2.2-3.7) gm/dL Procalcitonin 0.04 (<0.10) ng/mL Urine Color Urine Appearance (Clear) Urine pH (5.0-9.0) Ur Specific [place] (1.000-1.035) Urine Protein (Negative) mg/dL Urine Glucose (UA) (Negative) mg/dL Urine Ketones (Negative) mg/dL Urine Occult Blood (Negative) mg/dL Urine Nitrate (Negative) Urine Bilirubin (Negative) mg/dL Urine Urobilinogen mg/dL Ur Leukocyte Esterase (Negative) /uL Urine RBC (0-3) /hpf Urine WBC (0-4) /hpf Ur Squamous Epith Cells (0-4) /hpf Urine Bacteria (0) /hpf Urine Mucus (None) /hpf Ur Culture Indicated? 09/08/22 09/08/22 09/08/22 Range/Units 22:40 23:00 23:07 WBC (4.5-11.0) K/mcL RBC (4.63-6.08) M/mcL Hgb (13.7-17.5) g/dL Hct (40.1-51.0) % POC Hct (41-55) MCV (80.0-100.0) fL MCH (26.0-34.0) pg MCHC (31.0-36.0) g/dL RDW (11.5-14.5) % Plt Count (140-440) K/mcL MPV (8.8-12.5) fL Immature Gran % (Auto) (0.0-0.5) % Neut % (Auto) (38.0-78.0) % Lymph % (Auto) (15.5-49.0) % [place] % (Auto) (1.0-12.0) % Eos % (Auto) (0.0-7.0) % Baso % (Auto) (0.0-2.0) % Lymph # (Auto) (1.50-4.80) K/mcL [place] # (Auto) (0.10-0.90) K/mcL Eos # (Auto) (0.00-0.70) K/mcL Baso # (Auto) (0.00-0.30) K/mcL Immature Gran # (0.00-0.05) K/mcl Absolute Neutrophils (1.80-8.00) K/mcL POC VBG pH 7.45 H (7.32-7.42) POC VBG pCO2 at Temp 39.4 L (41-51) POC VBG pO2 37 (25-40) POC VBG HCO3 27.4 (24-28) POC VBG Total CO2 29.0 (25-29) POC Venous O2 Sat 74.0 H (40-70) POC VBG Base Excess 3.0 H (-2-2) VBG Lactic Acid 1.8 (0.5-2) POC Sodium (133-145) POC Potassium (3.3-5.1) POC Chloride (96-108) POC Total CO2 (22-30) POC BUN (6-20) POC Creatinine (0.6-1.2) POC Glucose (70-105) POC WB Ioniz Calcium (1.16-1.32) Total Bilirubin (0.1-1.0) mg/dL Direct Bilirubin (<0.3) mg/dL AST (<40) U/L ALT (<40) U/L Alkaline Phosphatase (39-117) U/L Ammonia 44 (16-60) umol/L Total Protein (5.9-8.4) gm/dL Albumin (3.2-5.2) gm/dL Globulin (2.2-3.7) gm/dL Procalcitonin (<0.10) ng/mL Urine Color Yellow Urine Appearance Cloudy A (Clear) Urine pH 6.0 (5.0-9.0) Ur Specific [place] 1.014 (1.000-1.035) Urine Protein 30 A (Negative) mg/dL Urine Glucose (UA) 50 A (Negative) mg/dL Urine Ketones 5 A (Negative) mg/dL Urine Occult Blood 0.03 (Negative) mg/dL Urine Nitrate Negative (Negative) Urine Bilirubin Negative (Negative) mg/dL Urine Urobilinogen Negative mg/dL Ur Leukocyte Esterase 500 A (Negative) /uL Urine RBC 16 H (0-3) /hpf Urine WBC > 182 H (0-4) /hpf Ur Squamous Epith Cells 0 (0-4) /hpf Urine Bacteria Few A (0) /hpf Urine Mucus Mod A (None) /hpf Ur Culture Indicated? yes 09/08/22 Range/Units 23:07 WBC (4.5-11.0) K/mcL RBC (4.63-6.08) M/mcL Hgb (13.7-17.5) g/dL Hct (40.1-51.0) % POC Hct 45.0 (41-55) MCV (80.0-100.0) fL MCH (26.0-34.0) pg MCHC (31.0-36.0) g/dL RDW (11.5-14.5) % Plt Count (140-440) K/mcL MPV (8.8-12.5) fL Immature Gran % (Auto) (0.0-0.5) % Neut % (Auto) (38.0-78.0) % Lymph % (Auto) (15.5-49.0) % [place] % (Auto) (1.0-12.0) % Eos % (Auto) (0.0-7.0) % Baso % (Auto) (0.0-2.0) % Lymph # (Auto) (1.50-4.80) K/mcL [place] # (Auto) (0.10-0.90) K/mcL Eos # (Auto) (0.00-0.70) K/mcL Baso # (Auto) (0.00-0.30) K/mcL Immature Gran # (0.00-0.05) K/mcl Absolute Neutrophils (1.80-8.00) K/mcL POC VBG pH (7.32-7.42) POC VBG pCO2 at Temp (41-51) POC VBG pO2 (25-40) POC VBG HCO3 (24-28) POC VBG Total CO2 (25-29) POC Venous O2 Sat (40-70) POC VBG Base Excess (-2-2) VBG Lactic Acid (0.5-2) POC Sodium 140 (133-145) POC Potassium 4.0 (3.3-5.1) POC Chloride 102 (96-108) POC Total CO2 26.0 (22-30) POC BUN 18 (6-20) POC Creatinine 0.5 L (0.6-1.2) POC Glucose 220 H (70-105) POC WB Ioniz Calcium 1.18 (1.16-1.32) Total Bilirubin (0.1-1.0) mg/dL Direct Bilirubin (<0.3) mg/dL AST (<40) U/L ALT (<40) U/L Alkaline Phosphatase (39-117) U/L Ammonia (16-60) umol/L Total Protein (5.9-8.4) gm/dL Albumin (3.2-5.2) gm/dL Globulin (2.2-3.7) gm/dL Procalcitonin (<0.10) ng/mL Urine Color Urine Appearance (Clear) Urine pH (5.0-9.0) Ur Specific [place] (1.000-1.035) Urine Protein (Negative) mg/dL Urine Glucose (UA) (Negative) mg/dL Urine Ketones (Negative) mg/dL Urine Occult Blood (Negative) mg/dL Urine Nitrate (Negative) Urine Bilirubin (Negative) mg/dL Urine Urobilinogen mg/dL Ur Leukocyte Esterase (Negative) /uL Urine RBC (0-3) /hpf Urine WBC (0-4) /hpf Ur Squamous Epith Cells (0-4) /hpf Urine Bacteria (0) /hpf Urine Mucus (None) /hpf Ur Culture Indicated? Radiology Data Radiology results reviewed: Yes I reviewed the patient's radiology results. Radiology results narrative: CT of the head obtained with image reviewed myself, no acute intracranial findings EKG Data EKG #1: EKG attestation: Yes I reviewed and interpreted this EKG. Rate: tachycardia Rhythm: SVT [place]/QRS: normal Heart block present: None ST segment elevation in: None ST segment depression in: None QTc: normal QRS morphology: Present normal Interpretation: no acute changes Core Measures AMI Core Measures Followed: Yes Discharge Plan Patient/Caregiver Discharge Instructions Pt seen by SIENE MAKER/PA only: No Clinical Impression: Acute UTI, Encephalopathy, metabolic, SVT (supraventricular tachycardia), A-fib Patient Disposition: Xfer As Outpt/Obs ([facility]) Condition: Fair Follow up with: Mustapha Maravilla MD [Primary Care Provider] - Prescriptions: No Action Tresiba FlexTouch U-100 100 unit/mL (3 mL) insulin pen 0RF insulin degludec [Tresiba FlexTouch U-100] 100 unit/mL (3 mL) insulin pen 0RF (DME) pen needle, diabetic [Comfort EZ Pen Humphrey] 32 gauge x 5/32" needle See Rx Instructions .Route Qty: 100 12RF Rx Instructions: Use with Tresiba once daily sulfamethoxazole-trimethoprim [Bactrim DS] 800-160 mg tablet 1 tab PO BID 10 Days Qty: 20 0RF hydrocodone-acetaminophen 10-325 mg tablet 1 tab PO Q6H PRN (Reason: pain) Qty: 120 0RF tramadol 50 mg tablet 100 mg PO Q6H Qty: 240 0RF Tresiba FlexTouch U-100 100 unit/mL (3 mL) insulin pen 0RF Tresiba FlexTouch U-100 100 unit/mL (3 mL) insulin pen 9 unit subcut QDAY tamsulosin 0.4 mg capsule 0.4 mg PO QDAY Qty: 90 0RF acetaminophen [Tylenol Extra Strength] 500 mg tablet 500 mg PO Q6H PRN
[2022-09-08 23:42] LABS: Basophils # (Auto) 0.05 K/mcL (0.00-0.30); Basophils % (Auto) 0.5 % (0.0-2.0); Hematocrit 41.4 % (40.1-51.0); Hemoglobin 14.3 g/dL (13.7-17.5); Lymphocytes # (Auto) 1.61 K/mcL (1.50-4.80); Lymphocytes % (Auto) 15.6 % (15.5-49.0); Mean Cell Volume 103.5 fL (80.0-100.0); Mean Corpuscular HGB Conc 34.5 g/dL (31.0-36.0); Mean Platelet Volume 10.9 fL (8.8-12.5); Monocytes # (Auto) 0.82 K/mcL (0.10-0.90); Neutrophils % (Auto) 74.5 % (38.0-78.0); Platelet Count 206 K/mcL (140-440); Red Cell Distribution Width 12.7 % (11.5-14.5); WBC 10.3 K/mcL (4.5-11.0)
[2022-09-08] MEDS ORDERED: METOPROLOL TARTRATE 5 MG/5 ML VIAL IV ONE (23:56)
[2022-09-09 00:01] LABS: ALT/SGPT 46 U/L (<40); AST/SGOT 38 U/L (<40); Albumin 4.3 gm/dL (3.2-5.2); Alkaline Phosphatase 71 U/L (39-117); Bilirubin,Direct 0.3 mg/dL (<0.3); Bilirubin,Total 0.6 mg/dL (0.1-1.0); Globulin 2.5 gm/dL (2.2-3.7)
[2022-09-09 00:20] LABS: Appearance,Urine CLOUDY (Clear); Bacteria,Urine FEW /hpf (0); Bilirubin,Urine Negative (Negative); Color,Urine YELLOW; Culture Indicated,Urine yes; Glucose,Urine (UA) 50 mg/dL (Negative); Ketones,Urine 5 mg/dL (Negative); Leukocyte Esterase,Urine 500 /uL (Negative); Mucus,Urine MOD /hpf; Nitrate,Urine Negative (Negative); Protein,Urine 30 mg/dL (Negative); Specific Gravity,Urine 1.014 (1.000-1.035); Urine Blood 0.03 mg/dL (Negative); Urine RBC 16 /hpf (0-3); Urine Squamous Epithelial Cell 0 /hpf (0-4); Urine WBC > 182 /hpf (0-4); Urobilinogen,Urine Negative
[2022-09-09] MEDS ORDERED: morphine 2 MG/ML VIAL IV ONE ×2 (01:30→03:41)
[2022-09-09] MEDS ORDERED: DILTIAZEM 25 MG/5 ML VIAL IV ONE (02:30)
[2022-09-09] MEDS ORDERED: KETOROLAC 30 MG/ML VIAL IV ONE (03:19)
--- NOTE | 2022-09-09 03:20 | Internal Med History&Physical ---
HPI History of Present Illness Patient information: Note initiated : 09/09/22 at 3:17 am Service Date, if different from initiated Date: [] Patient: Gianluca Burleson 77 y/o M admitted on for ams. Chief Complaint: [] History of present illness: Mr. Burleson is a 77 year old male with a history of diabetes mellitus, hypertension, BPH and bladder neck contracture complicated by urinary retention, reported dementia who presented to the emergency department by EMS for altered mental status. Family was able to provide some history, the patient has not been well for several days. They say the patient has not been able to urinate for almost a week. The patient does have recurrent issues with UTIs complicated by sepsis. Family reported that the patient did have a TURP done following a prior hospitalization when he was found to have urinary retention requiring indwelling King catheter placement. In the emergency department, the patient was found to be tachycardic, EKG initially showed supraventricular tachycardia for which the patient received adenosine. The patient converted to atrial fibrillation with rapid ventricular response and a diltiazem infusion was started. The patient also had a low-grade fever. Labs did not show any sirisha kocytosis, the patient has chronic macrocytosis however was not anemic. Lactic acid was 1.8. Venous blood gas pH 7.45, venous blood good PCO2 39.4. Renal function panel was unremarkable. Liver function panel was mostly unremarkable, ALT was mildly elevated at 46. Urinalysis was suggestive of a UTI. CT head without contrast did not show any acute changes. The patient was started on ceftriaxone. Hospital medicine was consulted to admit the patient for encephalopathy, atrial fibrillation with RVR, possible UTI. Review of systems: Unable to obtain due to altered mental status Physical exam Head: Atraumatic, normal inspection. Eyes: normal appearance, no scleral icterus. Neck: full ROM Respiratory: Nasal cannula oxygen supplementation, no respiratory distress. Cardiovascular: Tachycardia GI/Abdominal: soft, nontender, no guarding. Extremities: full range of motion, nontender. Neurological: CN II-XII intact, intact motor, intact sensation. 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 current use of opiate analgesic (Chronic) Hypertension (Chronic) Keratoacanthoma (Chronic) Altered mental status (Chronic) Hyperglycemia (Chronic) Sepsis (Chronic) Diabetes (Chronic) 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) Delirium (Chronic) Headache (Chronic) Agitated depression (Chronic) Chronic pain (Chronic) Fatigue (Chronic) Hostile behavior (Chronic) Spinal stenosis (Chronic) Kidney stone (Acute) Vomiting alone (Acute) Refractory nausea and vomiting (Acute) UTI (urinary tract infection) (Acute) Macrocytic anemia (Acute) Pericardial effusion without cardiac tamponade (Acute) Encounter for preventative adult health care examination (Chronic) Elevated PSA (Chronic) Anemia (Chronic) Screening for malignant neoplasm of prostate (Chronic) Polymyalgia rheumatica (Chronic) Scoliosis (Chronic) Medicare annual wellness visit, subsequent (Acute) Cellulitis and abscess of foot (Acute) Onychomycosis (Acute) Acute alteration in mental status (Acute) Acute urinary retention (Acute) Altered mental status, unspecified (Acute) Acute urinary retention (Acute) Cellulitis of toe (Acute) Bladder neck contracture (Acute) Medical History (Updated 09/09/22 @ 03:42 by Bharath Louis DO) Agitated depression Altered mental status secondary to infection and hyperglycemia Anemia Chronic pain DDD (degenerative disc disease), lumbar Delirium Diabetes Elevated PSA Encounter for preventative adult health care examination Fatigue Headache Hostile behavior Hyperglycemia Hypertension terminal gauger current use of opiate analgesic Polymyalgia rheumatica Scoliosis Screening for malignant neoplasm of prostate Sepsis with infectious source being a submandibular infection Spinal stenosis Urinary retention due to benign prostatic hyperplasia Surgical History History of oral surgery (~2017) History of photovaporization of prostate 01/08/2018 History of surgery for malignant neoplasm (~01/2018) Hx laparoscopic cholecystectomy No pertinent past surgical history Family History Mother , Age 85 Natural with proved cause Father , Age 45 No problems noted. Sister No problems noted. Brother , Age 69 Cancer Other Diabetes HTN (hypertension) Social History (Reviewed 06/11/22 @ 10:30 by ANNA Ba marital status: smoking status: Never smoker alcohol intake frequency: does not drink substance use type: does not use MEDS/ALLERGIES Home Medications and Allergies Home Medications Medication Instructions Recorded Confirmed Type acetaminophen 500 mg tablet 500 mg PO Q6H PRN 08/16/21 06/11/22 History (Tylenol Extra Strength) insulin degludec 100 unit/mL (3 9 unit subcut QDAY 01/17/22 06/11/22 History mL) subcutaneous pen (Tresiba FlexTouch U-100 insulin) pen needle, diabetic 32 gauge x #100 ea 06/05/22 06/11/22 Rx 5/32" (Comfort EZ Pen [place]) tamsulosin 0.4 mg capsule 0.4 mg PO QDAY #90 caps 06/11/22 06/11/22 Rx sulfamethoxazole 800 1 tab PO BID UTI 10 days #20 tabs 08/07/22 Rx mg-trimethoprim 160 mg tablet (Bactrim DS) hydrocodone 10 mg-acetaminophen 1 tab PO Q6H PRN pain #120 tabs 08/12/22 Rx 325 mg tablet tramadol 50 mg tablet 100 mg PO Q6H #240 tabs 08/20/22 Rx Allergies Allergy/AdvReac Type Severity Reaction Status Date / Time Amoxicillin AdvReac Mild unable to Verified 09/09/22 06:35 urinate EXAM Constitutional Vitals: Temp Pulse Resp BP Pulse Ox O2 Del Method O2 Flow Rate 99 F 92 H 14 130/76 93 Nasal Cannula 2 09/08/22 22:29 09/09/22 03:11 09/09/22 03:11 09/09/22 03:11 09/09/22 03:11 09/09/22 03:11 09/09/22 03:11 DATA Data Completed and Pending Labs: Labs from last 24 hours 09/08/22 09/08/22 09/08/22 23:07 23:07 23:00 WBC RBC Hgb Hct POC Hct 45.0 MCV MCH MCHC RDW Plt Count MPV Immature Gran % (Auto) Neut % (Auto) Lymph % (Auto) Citrus % (Auto) Eos % (Auto) Baso % (Auto) Lymph # (Auto) [place] # (Auto) Eos # (Auto) Baso # (Auto) Immature Gran # Absolute Neutrophils POC VBG pH 7.45 H POC VBG pCO2 at Temp 39.4 L POC VBG pO2 37 POC VBG HCO3 27.4 POC VBG Total CO2 29.0 POC Venous O2 Sat 74.0 H POC VBG Base Excess 3.0 H VBG Lactic Acid 1.8 POC Sodium 140 POC Potassium 4.0 POC Chloride 102 POC Total CO2 26.0 POC BUN 18 POC Creatinine 0.5 L POC Glucose 220 H POC WB Ioniz Calcium 1.18 Total Bilirubin Direct Bilirubin AST ALT Alkaline Phosphatase Ammonia Total Protein Albumin Globulin Procalcitonin Urine Color Yellow Urine Appearance Cloudy A Urine pH 6.0 Ur Specific Drake 1.014 Urine Protein 30 A Urine Glucose (UA) 50 A Urine Ketones 5 A Urine Occult Blood 0.03 Urine Nitrate Negative Urine Bilirubin Negative Urine Urobilinogen Negative Ur Leukocyte Esterase 500 A Urine RBC 16 H Urine WBC > 182 H Ur Squamous Epith Cells 0 Urine Bacteria Few A Urine Mucus Mod A Ur Culture Indicated? yes 09/08/22 09/08/22 09/08/22 22:40 22:40 22:40 WBC RBC Hgb Hct POC Hct MCV MCH MCHC RDW Plt Count MPV Immature Gran % (Auto) Neut % (Auto) Lymph % (Auto) [place] % (Auto) Eos % (Auto) Baso % (Auto) Lymph # (Auto) [place] # (Auto) Eos # (Auto) Baso # (Auto) Immature Gran # Absolute Neutrophils POC VBG pH POC VBG pCO2 at Temp POC VBG pO2 POC VBG HCO3 POC VBG Total CO2 POC Venous O2 Sat POC VBG Base Excess VBG Lactic Acid POC Sodium POC Potassium POC Chloride POC Total CO2 POC BUN POC Creatinine POC Glucose POC WB Ioniz Calcium Total Bilirubin 0.6 Direct Bilirubin 0.3 H AST 38 ALT 46 H Alkaline Phosphatase 71 Ammonia 44 Total Protein 6.8 Albumin 4.3 Globulin 2.5 Procalcitonin 0.04 Urine Color Urine Appearance Urine pH Ur Specific Drake Urine Protein Urine Glucose (UA) Urine Ketones Urine Occult Blood Urine Nitrate Urine Bilirubin Urine Urobilinogen Ur Leukocyte Esterase Urine RBC Urine WBC Ur Squamous Epith Cells Urine Bacteria Urine Mucus Ur Culture Indicated? 09/08/22 22:40 WBC 10.3 RBC 4.00 L Hgb 14.3 Hct 41.4 POC Hct MCV 103.5 H MCH 35.8 H MCHC 34.5 RDW 12.7 Plt Count 206 MPV 10.9 Immature Gran % (Auto) 0.4 Neut % (Auto) 74.5 Lymph % (Auto) 15.6 Citrus % (Auto) 8.0 Eos % (Auto) 1.0 Baso % (Auto) 0.5 Lymph # (Auto) 1.61 Citrus # (Auto) 0.82 Eos # (Auto) 0.10 Baso # (Auto) 0.05 Immature Gran # 0.04 Absolute Neutrophils 7.69 POC VBG pH POC VBG pCO2 at Temp POC VBG pO2 POC VBG HCO3 POC VBG Total CO2 POC Venous O2 Sat POC VBG Base Excess VBG Lactic Acid POC Sodium POC Potassium POC Chloride POC Total CO2 POC BUN POC Creatinine POC Glucose POC WB Ioniz Calcium Total Bilirubin Direct Bilirubin AST ALT Alkaline Phosphatase Ammonia Total Protein Albumin Globulin Procalcitonin Urine Color Urine Appearance Urine pH Ur Specific Drake Urine Protein Urine Glucose (UA) Urine Ketones Urine Occult Blood Urine Nitrate Urine Bilirubin Urine Urobilinogen Ur Leukocyte Esterase Urine RBC Urine WBC Ur Squamous Epith Cells Urine Bacteria Urine Mucus Ur Culture Indicated? A/P Narrative A/P Narrative: Assessment: 77 year old male with a history of diabetes mellitus, hypertension, BPH and bladder neck contracture complicated by urinary retention, reported dementia admitted for encephalopathy, possible UTI and atrial fibrillation with RVR. #Encephalopathy, probably metabolic due to sepsis #Possible UTI #Atrial fibrillation with RVR #Reported history of dementia #Diabetes mellitus, insulin dependent #Hypertension #BPH and bladder neck contracture #DDD on chronic opioid treatment (Hydrocodone and Tramadol) #Macrocytosis Plan -Cardizem IV for A-fib with RVR. -Ceftriaxone for possible UTI. -Follow urine and blood cultures. -Haldol IV prn for severe agitation. -Correction Humalog SSI medium dose. 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 -Bladder scan prn. -Home medication reconciliation. -DVT prophylaxis: Lovenox -Code status: DNR/DNI -Disposition: Admit to inpatient PCU. Time Spent With Patient Time: Total time spent is greater than 50% in coordination of care (as documented) at patient's floor/unit and/or counseling patient:
[2022-09-09] MEDS: DILTIAZEM 125 MG in DEXTROSE 5% IN WATER 100 ML IV SCH ×3 (04:00→14:21)
[2022-09-09] MEDS ORDERED: DEXTROSE 31 GM ORAL.SUSP PO PRN (04:22)
[2022-09-09] MEDS ORDERED: ONDANSETRON 4 MG/2 ML VIAL IV PRN (04:22)
[2022-09-09] MEDS ORDERED: HALOPERIDOL LACTATE 5 MG/ML VIAL IV PRN (04:22)
[2022-09-09] MEDS ORDERED: DEXTROSE 50% 50 ML VIAL IV PRN (04:22)
[2022-09-09] MEDS ORDERED: ACETAMINOPHEN 325 MG TABLET PO PRN (04:22)
[2022-09-09] MEDS ORDERED: METOPROLOL TARTRATE 5 MG/5 ML VIAL IV PRN ×2 (04:22→19:11)
[2022-09-09] MEDS ORDERED: SENNOSIDES 1 TABLET PO PRN (04:22)
[2022-09-09] MEDS ORDERED: LACTULOSE 20 GM/30 ML ORAL.SOL PO PRN (04:22)
[2022-09-09] MEDS ORDERED: METOPROLOL TARTRATE 50 MG TABLET PO SCH (04:22)
[2022-09-09] MEDS ORDERED: METOPROLOL TARTRATE 50 MG TABLET ONE (04:32)
--- NOTE | 2022-09-09 05:06 | Cat Scan Report ---
INDICATION: ams COMPARISON: Previous MRI scan dated 08/06/2021 TECHNIQUE: Axial noncontrast-enhanced images through the brain. Sagittally and coronally reformatted images. FINDINGS: Examination was initially interpreted by [facility] Cerebral hemispheres:Negative. No intra-axial abnormality. No intra-axial hematoma. No localized mass effect. Brain volume is within normal limits for age. There is prominent white matter abnormality with low density in a predominantly periventricular distribution. Appearance is consistent with small vessel ischemic change. Clinical correlation for possible history of diabetes or hypertension recommended. No focal abnormality. Appearance seems unchanged since 08/06/2021 Brainstem and cerebellum:No intra-axial abnormality Extra-axial:No acute hemorrhage. No subdural or epidural hematoma. No subarachnoid hemorrhage. Basilar cisterns are normal Calvarial:No calvarial fracture. No lytic lesion Temporal bones are negative. No destructive lesions Soft tissue, orbits, sinuses:Orbits and visualized facial soft tissues and paranasal sinuses are negative IMPRESSION: 1. No acute intracranial hemorrhage 2. White matter abnormality consistent with small vessel ischemic change 3. No acute abnormality. No significant interval change The exam was performed using radiation dose optimization techniques including, but not limited to, automated exposure control, adjustment of the mA and/or kV according to patient size and use of iterative reconstruction technique. Interpreted and Authenticated by: Gianluca Kelly 09/09/22
[2022-09-09] MEDS: 0.9 % SODIUM CHLORIDE 10 ML SYRINGE IV SCH ×3 (05:10→21:10)
[2022-09-09] MEDS ORDERED: HALOPERIDOL LACTATE 5 MG/ML VIAL ONE (06:07)
[2022-09-09] MEDS: ENOXAPARIN 40 MG/0.4 ML SYRINGE SQ SCH (08:11)
[2022-09-09] MEDS: INSULIN LISPRO 1 UNIT/0.01 ML UNIT SQ SCH ×4 (08:11→20:22)
[2022-09-09] MEDS: DOCUSATE SODIUM 100 MG CAPSULE PO SCH ×2 (08:15→20:21)
--- NOTE | 2022-09-09 08:35 | XRay Report ---
CLINICAL INFORMATION: Hypoxia COMPARISON: 01/28/2011 TECHNIQUE: Portable FINDINGS: The heart size, mediastinum and pulmonary vessels are unremarkable. The lungs are clear. There are no effusions. The bones and soft tissues are within normal limits. IMPRESSION: Normal chest. Interpreted and Authenticated by: Gianluca Joyce 09/09/22
[2022-09-09] MEDS: KETOROLAC 30 MG/ML VIAL IV PRN ×2 (09:32→21:56)
[2022-09-09] MEDS ORDERED: ACETAMINOPHEN 500 MG TABLET PO PRN (10:08)
[2022-09-09] MEDS ORDERED: IBUPROFEN 200 MG TABLET PO PRN (10:11)
[2022-09-09] MEDS: traMADol 50 MG TABLET PO PRN (10:50)
[2022-09-09] MEDS: cefTRIAXone 2 GM in DEXTROSE 5% IN WATER 50 ML IV SCH (14:21)
[2022-09-09] MEDS ORDERED: TAMSULOSIN 0.4 MG CAPSULE PO SCH (19:18)
[2022-09-09] MEDS: METOPROLOL TARTRATE 50 MG TABLET PO SCH ×2 (19:35→21:09)
[2022-09-09] MEDS: HYDROcodone/APAP 10/325MG TABLET PO PRN (21:24)
[2022-09-10] MEDS: HYDROmorphone 0.5 MG/0.5 ML SYRINGE IV PRN ×2 (00:08→04:42)
[2022-09-10] MEDS: HYDROcodone/APAP 10/325MG TABLET PO PRN ×2 (02:27→19:02)
[2022-09-10] MEDS: 0.9 % SODIUM CHLORIDE 10 ML SYRINGE IV SCH ×4 (04:43→23:41)
[2022-09-10] MEDS: TAMSULOSIN 0.4 MG CAPSULE PO SCH (08:11)
[2022-09-10] MEDS: METOPROLOL TARTRATE 50 MG TABLET PO SCH ×2 (08:11→20:19)
[2022-09-10] MEDS: INSULIN GLARGINE, HUMAN 1 UNIT/0.01 ML SQ SCH (08:11)
[2022-09-10] MEDS: DOCUSATE SODIUM 100 MG CAPSULE PO SCH ×2 (08:11→20:19)
[2022-09-10] MEDS: INSULIN LISPRO 1 UNIT/0.01 ML UNIT SQ SCH ×4 (08:12→20:30)
[2022-09-10] MEDS: ENOXAPARIN 40 MG/0.4 ML SYRINGE SQ SCH (08:12)
[2022-09-10 08:31] LABS: Basophils # (Auto) 0.05 K/mcL (0.00-0.30); Basophils % (Auto) 0.6 % (0.0-2.0); Eosinophils # (Auto) 0.11 K/mcL (0.00-0.70); Eosinophils % (Auto) 1.4 % (0.0-7.0); Hematocrit 41.5 % (40.1-51.0); Hemoglobin 14.9 g/dL (13.7-17.5); Lymphocytes # (Auto) 2.05 K/mcL (1.50-4.80); Lymphocytes % (Auto) 25.6 % (15.5-49.0); Mean Cell Volume 101.7 fL (80.0-100.0); Mean Corpuscular HGB Conc 35.9 g/dL (31.0-36.0); Mean Platelet Volume 10.7 fL (8.8-12.5); Monocytes # (Auto) 1.14 K/mcL (0.10-0.90); Monocytes % (Auto) 14.3 % (1.0-12.0); Neutrophils % (Auto) 57.7 % (38.0-78.0); Platelet Count 211 K/mcL (140-440); RBC 4.08 M/mcL (4.63-6.08); Red Cell Distribution Width 12.4 % (11.5-14.5)
[2022-09-10 08:57] LABS: ALT/SGPT 67 U/L (<40); AST/SGOT 37 U/L (<40); Albumin 3.9 gm/dL (3.2-5.2); Albumin/Globulin Ratio 1.8 (1.0-2.3); Alkaline Phosphatase 55 U/L (39-117); Bilirubin,Direct 0.2 mg/dL (<0.3); Bilirubin,Total 0.6 mg/dL (0.1-1.0); Blood Urea Nitrogen 19 mg/dL (8-23); Calcium 8.8 mg/dL (8.6-10.4); Carbon Dioxide 28 mmol/L (22-30); Chloride 99 mmol/L (96-108); Globulin 2.2 gm/dL (2.2-3.7); Glomerular Filtration Rate 95; Glucose 194 mg/dL (70-105); Lactate Dehydrogenase 225 U/L (135-225); Phosphorous 3.2 mg/dL (2.5-4.5); Triglycerides 70 mg/dL (<150); Uric Acid 3.7 mg/dL (2.5-8.0)
[2022-09-10] MEDS: cefTRIAXone 2 GM in DEXTROSE 5% IN WATER 50 ML IV SCH (09:54)
--- NOTE | 2022-09-10 14:09 | Internal Med Progress Note ---
SUBJECTIVE Subjective Patient information: Note initiated : 09/10/22 at 2:07 pm Service Date, if different from initiated Date: [] Patient: Gianluca Burleson 77 y/o M admitted on 09/09/22 for ams. Chief Complaint: [] Interval history: Mr. Burleson is a 77 year old male with a history of diabetes mellitus, hypertension, BPH and bladder neck contracture complicated by urinary retention, reported dementia who presented to the emergency department by EMS for altered mental status. Family was able to provide some history, the patient has not been well for several days. They say the patient has not been able to urinate for almost a week. The patient does have recurrent issues with UTIs complicated by sepsis. Family reported that the patient did have a TURP done following a prior hospitalization when he was found to have urinary retention requiring indwelling King catheter placement. In the emergency department, the patient was found to be tachycardic, EKG initially showed supraventricular tachycardia for which the patient received adenosine. The patient converted to atrial fibrillation with rapid ventricular response and a diltiazem infusion was started. The patient also had a low-grade fever. Labs did not show any leukocytosis, the patient has chronic macrocytosis however was not anemic. Lactic acid was 1.8. Venous blood gas pH 7.45, venous blood good PCO2 39.4. Renal function panel was unremarkable. Liver function panel was mostly unremarkable, ALT was mildly elevated at 46. Urinalysis was suggestive of a UTI. CT head without contrast did not show any acute changes. The patient was started on ceftriaxone for possible UTI and Cardizem infusion for A-fib with RVR. Hospital medicine was consulted to admit the patient for encephalopathy, atrial fibrillation with RVR, possible UTI. 09/10 Vital stable overnight, on room air this morning. Cognition significantly improved. Yesterday evening, the patient was transition to Lopressor and off the Cardizem infusion. Urine culture pending. Continuing ceftriaxone for now. Transfer to [facility] status. Physical exam Head: Atraumatic, normal inspection. Eyes: normal appearance, no scleral icterus. Neck: full ROM Respiratory: Room air, no respiratory distress. Cardiovascular: Irregular heart rate GI/Abdominal: soft, nontender, no guarding. Extremities: full range of motion, nontender. Neurological: CN II-XII intact, intact motor, intact sensation. Psychiatric: Normal mood Skin: warm, normal color Constitutional Vitals: Vital Signs Temp Pulse Resp BP Pulse Ox O2 Del Method O2 Flow Rate 97.4 F 48 L 20 133/94 97 Room Air 2 09/10/22 12:00 09/10/22 11:50 09/10/22 11:50 09/10/22 10:01 09/10/22 11:50 09/10/22 10:01 09/09/22 06:31 Period Temp Pulse Resp BP Sys/Bagley Pulse Ox O2 Del Method O2 Flow Rate Last 24 Hr 97.1 F-98.8 F 1-102 8-28 112-161/64-110 89-98 Room Air-Room Air Intake and Output 09/10/22 09/10/22 09/10/22 03:59 11:59 19:59 Intake Total 200 530 240 Output Total 350 450 Balance -150 80 240 Weight 55.792 kg Intake & Output: Intake & Output 09/10/22 09/10/22 09/10/22 03:59 11:59 19:59 Intake Total 200 530 240 Output Total 350 450 Balance -150 80 240 Weight 55.792 kg Intake: IV 50 Cardizem 125 mg In Dextrose 5% 0 in Water 100 ml @ 5 MG/HR 5 mls /hr IV Q12H [facility] Rx#:[id number] Rocephin 2 gm In Dextrose 5% in 50 Water 50 ml @ 100 mls/hr IV Q24H [facility] Rx#:[id number] Oral 200 240 240 GI Tube Flush 240 Output: Void Amount 350 450 Other: Meal Breakfast Lunch Percent of Meal Consumed 100% 75% Feeding Ability Independent Independent Urine Appearance Cloudy Clear Sediment Urine Color Yellow Yellow Urine Odor Normal OBJ DATA Labs 09/10/22 08:05 09/10/22 08:04 Labs: Abnormal Lab Results 09/10/22 09/10/22 09/08/22 08:05 08:04 23:07 RBC 4.08 L MCV 101.7 H MCH 36.5 H [place] % (Auto) 14.3 H [place] # (Auto) 1.14 H POC VBG pH POC VBG pCO2 at Temp POC Venous O2 Sat POC VBG Base Excess Creatinine 0.6 L POC Creatinine 0.5 L Glucose 194 H POC Glucose 220 H Direct Bilirubin ALT 67 H Urine Appearance Urine Protein Urine Glucose (UA) Urine Ketones Ur Leukocyte Esterase Urine RBC Urine WBC Urine Bacteria Urine Mucus 09/08/22 09/08/22 09/08/22 23:07 23:00 22:40 RBC MCV MCH [place] % (Auto) [place] # (Auto) POC VBG pH 7.45 H POC VBG pCO2 at Temp 39.4 L POC Venous O2 Sat 74.0 H POC VBG Base Excess 3.0 H Creatinine POC Creatinine Glucose POC Glucose Direct Bilirubin 0.3 H ALT 46 H Urine Appearance Cloudy A Urine Protein 30 A Urine Glucose (UA) 50 A Urine Ketones 5 A Ur Leukocyte Esterase 500 A Urine RBC 16 H Urine WBC > 182 H Urine Bacteria Few A Urine Mucus Mod A 09/08/22 22:40 RBC 4.00 L MCV 103.5 H MCH 35.8 H [place] % (Auto) [place] # (Auto) POC VBG pH POC VBG pCO2 at Temp POC Venous O2 Sat POC VBG Base Excess Creatinine POC Creatinine Glucose POC Glucose Direct Bilirubin ALT Urine Appearance Urine Protein Urine Glucose (UA) Urine Ketones Ur Leukocyte Esterase Urine RBC Urine WBC Urine Bacteria Urine Mucus Meds: Medications Acetaminophen (Acetaminophen 325 Mg Tablet) 650 mg PO Q6HP PRN; Protocol PRN Reason: Per Pain Protocol/Fever > 101 Hydrocodone Bitart/Acetaminophen (Hydrocodone/Apap 10/325mg Tablet) 1 tab PO Q6HP PRN; Protocol PRN Reason: pain Last Admin: 09/10/22 02:27 Dose: 1 tab Dextrose (Dextrose 50% 50 Ml Vial) 0 ml IV UD PRN PRN Reason: Per Sliding Scale Diagnostic Test (Pha) (Accu-Chek 1 Each Strip) 1 each FS ACHS [facility] Last Admin: 09/10/22 11:30 Dose: 1 each Docusate Sodium (Docusate Sodium 100 Mg Capsule) 100 mg PO BID [facility] Last Admin: 09/10/22 08:11 Dose: 100 mg Enoxaparin Sodium (Enoxaparin 40 Mg/0.4 Ml Syringe) 40 mg SQ DAILY [facility] Last Admin: 09/10/22 08:12 Dose: 40 mg Glucose (Dextrose 31 Gm Oral.Susp) 15 gm PO PRN PRN PRN Reason: Hypoglycemia Haloperidol Lactate (Haloperidol Lactate 5 Mg/Ml Vial) 2 mg IV Q4HP PRN PRN Reason: ANXIETY/SEDATION Last Admin: 09/09/22 06:05 Dose: 2 mg Hydromorphone HCl (Hydromorphone 0.5 Mg/0.5 Ml Syringe) 0.5 mg IV Q4HP PRN; Protocol PRN Reason: Per Pain Protocol Last Admin: 09/10/22 04:42 Dose: 0.5 mg Ceftriaxone Sodium 2 gm/ (Dextrose) 50 mls @ 100 mls/hr IV Q24H [facility]; Protocol Last Infusion: 09/10/22 11:02 Dose: Infused Ibuprofen (Ibuprofen 200 Mg Tablet) 400 mg PO Q6HP PRN PRN Reason: Pain Insulin Glargine (Insulin Glargine, Human 1 Unit/0.01 Ml) 8 unit SQ QDAY [facility] Last Admin: 09/10/22 08:11 Dose: 8 units Insulin Human Lispro (Insulin Lispro 1 Unit/0.01 Ml Unit) 0 unit SQ ACHS [facility]; Protocol Last Admin: 09/10/22 11:30 Dose: 2 units Ketorolac Tromethamine (Ketorolac 30 Mg/Ml Vial) 15 mg IV Q6HP PRN PRN Reason: Pain Stop: 09/11/22 03:14 Last Admin: 09/09/22 21:56 Dose: 15 mg Lactulose (Lactulose 20 Gm/30 Ml Oral.Kari) 10 gm PO DAILYP PRN PRN Reason: Constipation Metoprolol Tartrate (Metoprolol Tartrate 50 Mg Tablet) 50 mg PO Q12H [facility] Last Admin: 09/10/22 08:11 Dose: 50 mg Metoprolol Tartrate (Metoprolol Tartrate 5 Mg/5 Ml Vial) 5 mg IV Q4HP PRN PRN Reason: Tachyarrhythmias Ondansetron HCl (Ondansetron 4 Mg/2 Ml Vial) 4 mg IV Q4HP PRN; Protocol PRN Reason: Nausea And Vomiting Senna (Sennosides 1 Tablet) 2 tab PO HSP PRN PRN Reason: Constipation Sodium Chloride (0.9 % Sodium Chloride 10 Ml Syringe) 10 ml IV Q8 [facility] Last Admin: 09/10/22 04:43 Dose: 10 ml Tamsulosin HCl (Tamsulosin 0.4 Mg Capsule) 0.4 mg PO QDAY [facility] Last Admin: 09/10/22 08:11 Dose: 0.4 mg Tramadol HCl (Tramadol 50 Mg Tablet) 100 mg PO QIDP PRN PRN Reason: Pain Last Admin: 09/09/22 10:50 Dose: 100 mg A/P Narrative A/P Narrative: Assessment: 77 year old male with a history of diabetes mellitus, hypertension, BPH and bladder neck contracture complicated by urinary retention, admitted for encephalopathy, possible UTI and atrial fibrillation with RVR. The day after admission, the patient's mental status improved back to baseline. Atrial fibrillation continued, he was transition to oral Lopressor and off a Cardizem infusion. #Resolved encephalopathy #Possible UTI #Atrial fibrillation now rate controlled #Diabetes mellitus, insulin dependent #Hypertension #BPH and bladder neck contracture #DDD on chronic opioid treatment (Hydrocodone and Tramadol) #Macrocytosis Plan -Cardizem IV for A-fib with RVR. -Ceftriaxone for possible UTI. -Follow urine and blood cultures. -Haldol IV prn for severe agitation. -Correction Humalog SSI medium dose. 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 -Bladder scan prn. -Home medication reconciliation. -DVT prophylaxis: Lovenox -Code status: DNR/DNI -Disposition: Inpatient MedSurg, possibly discharge to home tomorrow. Time Spent With Patient Time: Total time spent is greater than 50% in coordination of care (as documented) at patient's floor/unit and/or counseling patient: QUALITY Stroke Symptom Onset Unknown: No VTE Deep Vein Thrombosis/Pulmonary Embolism Present on Admission: No Restraints Restraint In Place: No
[2022-09-10] MEDS: traMADol 50 MG TABLET PO PRN (17:20)
[2022-09-10] MEDS: KETOROLAC 30 MG/ML VIAL IV PRN (20:20)
[2022-09-11] MEDS: 0.9 % SODIUM CHLORIDE 10 ML SYRINGE IV SCH (05:28)
[2022-09-11] MEDS: HYDROcodone/APAP 10/325MG TABLET PO PRN ×2 (06:51→12:00)
[2022-09-11] MEDS: INSULIN LISPRO 1 UNIT/0.01 ML UNIT SQ SCH ×2 (06:59→12:06)
[2022-09-11] MEDS: METOPROLOL TARTRATE 50 MG TABLET PO SCH (08:46)
[2022-09-11] MEDS: DOCUSATE SODIUM 100 MG CAPSULE PO SCH (08:46)
[2022-09-11] MEDS: TAMSULOSIN 0.4 MG CAPSULE PO SCH (08:47)
[2022-09-11] MEDS: INSULIN GLARGINE, HUMAN 1 UNIT/0.01 ML SQ SCH (08:47)
[2022-09-11] MEDS: ENOXAPARIN 40 MG/0.4 ML SYRINGE SQ SCH (08:47)
--- NOTE | 2022-09-11 09:27 | Discharge Summary ---
Discharge Provider Provider IMPORTANT FOLLOW-UP INFORMATION FOR PCP: Patient information: Note initiated : 09/11/22 at 9:23 am Service Date, if different from initiated Date: [] Patient: Gianluca Burleson 77 y/o M admitted on 09/09/22 for ams. Chief Complaint: [] Date of admission: 09/09/22 04:18 Discharge date: 09/11/22 Primary care physician: Mustapha Maravilla MD Consults: 09/09/22 Consult to Physician [CONS] Stat Comment: Consulting Provider: Rubin Patel Reason For Exam: Physician to Consult COURSE Hospital Course Hospital course: Mr. Burleson is a 77 year old male with a history of diabetes mellitus, hypertension, BPH and bladder neck contracture complicated by urinary retention, reported dementia who presented to the emergency department by EMS for altered mental status. Family was able to provide some history, the patient has not been well for several days. They say the patient has not been able to urinate for almost a week. The patient does have recurrent issues with UTIs complicated by sepsis. Family reported that the patient did have a TURP done following a prior hospitalization when he was found to have urinary retention requiring indwelling King catheter placement. In the emergency department, the patient was found to be tachycardic, EKG initially showed supraventricular tachycardia for which the patient received adenosine. The patient converted to atrial fibrillation with rapid ventricular response and a diltiazem infusion was started. The patient also had a low-grade fever. Labs did not show any leukocytosis, the patient has chronic macrocytosis however was not anemic. Lactic acid was 1.8. Venous blood gas pH 7.45, venous blood good PCO2 39.4. Renal function panel was unremarkable. Liver function panel was mostly unremarkable, ALT was mildly elevated at 46. Urinalysis was suggestive of a UTI. CT head without contrast did not show any acute changes. The patient was started on ceftriaxone for possible UTI and Cardizem infusion for A-fib with RVR. Hospital medicine was consulted to admit the patient for encephalopathy, atrial fibrillation with RVR, possible UTI. 09/10 Vital stable overnight, on room air this morning. Cognition significantly improved. Yesterday evening, the patient was transition to Lopressor and off the Cardizem infusion. Urine culture pending. Continuing ceftriaxone for now. Transfer to [facility]. 09/11 Significant events overnight, repeat EKG shows the patient is in atrial flutter. We will continue Lopressor 50 mg twice daily at discharge. I discussed anticoagulation with the patient, he wishes to discuss that further with his primary care provider. The patient is open to seeing cardiology for atrial flutter, I requested a referral for the patient to see cardiology after d ischarge. Urine culture is showing no growth to date, I am not sure this really is a UTI however will complete 3 more days of treatment after discharge just in case his presentation is secondary to UTI. I suspect an alternative cause for the patient's recurrent episodes of encephalopathy, possibly related to urinary retention which appears to be intermittent as the patient did not require interv ention this hospitalization. I will place a referral for the patient to see urology to look into this possibility. Discharged to home with family. Physical exam Head: Atraumatic, normal inspection. Eyes: normal appearance, no scleral icterus. Neck: full ROM Respiratory: Room air, no respiratory distress. Cardiovascular: Irregular heart rate GI/Abdominal: soft, nontender, no guarding. Extremities: full range of motion, nontender. Neurological: CN II-XII intact, intact motor, intact sensation. Psychiatric: Normal mood Skin: warm, normal color Assessment: 77 year old male with a history of diabetes mellitus, hypertension, BPH and bladder neck contracture complicated by urinary retention, admitted for encephalopathy, possible UTI and atrial fibrillation with RVR. The day after admission, the patient's mental status improved back to baseline. Atrial fibrillation continued, he was transition to oral Lopressor and off a Cardizem infusion. #Resolved encephalopathy #Possible UTI #Atrial fibrillation now rate controlled #Diabetes mellitus, insulin dependent #Hypertension #BPH and bladder neck contracture #DDD on chronic opioid treatment (Hydrocodone and Tramadol) #Macrocytosis Plan -Start Lopressor 50 mg twice daily and Lopressor 5 mg IV as needed for persistent tachycardia, discontinue Cardizem drip. -Ceftriaxone for possible UTI. -Follow urine and blood cultures. -Haldol IV prn for severe agitation. -Correction Humalog SSI medium dose. 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 -Bladder scan prn. -DVT prophylaxis: Lovenox -Code status: DNR/DNI Discharge diagnosis: Encephalopathy of uncertain etiology Secondary discharge diagnosis: Atrial flutter with rapid ventricular response Possible urinary tract infection Time Spent with Patient Time attestation: Total time spent providing and/or coordinating discharge services: Time spent: Greater than 30 minutes EXAM Constitutional Vitals: Temp Pulse Resp BP Pulse Ox O2 Del Method O2 Flow Rate 97.5 F 61 20 133/91 91 Room Air 2 09/11/22 06:46 09/11/22 06:46 09/11/22 06:46 09/11/22 06:46 09/11/22 02:51 09/11/22 02:51 09/09/22 06:31 Discharge Data Data Completed and Pending Labs on day of discharge: Preliminary micro results at discharge 09/08/22 23:05 Blood Culture - Preliminary Blood 09/08/22 22:50 Blood Culture - Preliminary Blood 09/08/22 23:00 Urine Culture - Preliminary Urine - Clean Void Mid-Stream Discharge Plan Patient/Caregiver Discharge Instructions Activity: ambulate only with your walker Diet: Consistent Carbohydrate Prescriptions: New metoprolol tartrate 50 mg Tablet 50 mg PO BID Qty: 60 5RF cefdinir 300 mg capsule 300 mg PO BID 3 Days Qty: 6 0RF Continued (DME) pen needle, diabetic [Comfort EZ Pen [place]] 32 gauge x 5/32" needle See Rx Instructions .Route Qty: 100 12RF Rx Instructions: Use with Tresiba once daily hydrocodone-acetaminophen 10-325 mg tablet 1 tab PO Q6H PRN (Reason: pain) Qty: 120 0RF Tresiba FlexTouch U-100 100 unit/mL (3 mL) insulin pen 10 unit subcut QDAY tamsulosin 0.4 mg capsule 0.4 mg PO QDAY Qty: 90 0RF tramadol 50 mg tablet 50 - 100 mg PO QIDP PRN (Reason: Pain) ibuprofen [Advil] 200 mg Tablet 400 mg PO Q6H PRN (Reason: Pain) acetaminophen [Tylenol Extra Strength] 500 mg tablet 500 mg PO Q6H PRN (Reason: Pain) Follow Up Plan Follow up with: Mustapha Maravilla MD [Primary Care Provider] - Laci Braun MD [Physician] - (BPH and bladder neck contracture causing intermittent urinary retention likely resulting in recurrent hospitalizations.) Patient Disposition: Home, Self-Care Prognosis: Fair Overall status at discharge: patient is progressing back to baseline Discharge Orders: Discharge Order (Routine); Ordered 04/12/23 Ordered By: Rubin RAMOS VTE Deep Vein Thrombosis/Pulmonary Embolism Present on Admission: No
[2022-09-11] MEDS: cefTRIAXone 2 GM in DEXTROSE 5% IN WATER 50 ML IV SCH (10:30)
--- NOTE | 2022-09-12 11:20 | EKG ---
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
--- NOTE | 2022-09-12 11:21 | EKG ---
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
--- NOTE | 2022-09-13 12:05 | EKG ---
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
--- NOTE | 2022-09-13 12:06 | EKG ---
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
== END 2022-09-11 12:18 | disposition home or self-care (01) | DRG 71 ==
LOC: ED 22:28 → ICU 09-09 04:18 → MEDSUR 09-10 13:12
PROVIDERS: ADMIT Internal Medicine; ATTEND Internal Medicine